=== PATIENT | female | born 1945 | race African-American/Black ===

== ENCOUNTER 2017-01-13 08:05 | Inpatient (IN) | payer MEDICARE ==
[~2017-01-13] VITALS: Ht 154.9 cm; Wt 107.7 kg
[2017-01-13] MEDS ORDERED: CYMB60CA PO (14:49)
[2017-01-13] MEDS ORDERED: CALCTAB19 PO (14:49)
[2017-01-13] MEDS ORDERED: ALEN1TAB48 PO (14:49)
[2017-01-13] MEDS ORDERED: MULTTAB67 PO (14:49)
[2017-01-13] MEDS ORDERED: ASPI1TAB69 PO (14:49)
[2017-01-13] MEDS ORDERED: TRAM50TA PO (14:49)
--- NOTE | 2017-02-17 15:00 | MH ---
cc: Amos UNGER M.D. DATE OF ADMISSION: 02/24/2017 ADMITTING DIAGNOSIS Osteoarthritic degeneration, left knee. HISTORY OF PRESENT ILLNESS This pleasant 71-year-old female is being admitted today for a left total knee arthroplasty due to severe painful osteoarthritic degeneration, left knee. PAST MEDICAL HISTORY 1. Anxiety. 2. Arthritis. 3. Depression. 4. Phlebitis in the past. PAST SURGICAL HISTORY 1. Total hip arthroplasty. 2. Hysterectomy. 3. Toe surgery. 4. Hand surgery. 5. Shoulder surgery. MEDICATIONS Current medications include: 1. Amoxicillin for the dentist. 2. Duloxetine. 3. Tramadol. 4. Alendronate. 5. Calcium. 6. Vitamins. REVIEW OF SYSTEMS Noncontributory. FAMILY HISTORY Noncontributory. She does not smoke or drink. ALLERGIES No known allergies. PHYSICAL EXAMINATION GENERAL: We find a 71-year-old female well-developed, well-nourished, oriented x3, complaining of pain in her left knee. VITAL SIGNS: Blood pressure 138/88, pulse 88 and regular, respirations 18, temperature 97.6, pulse oximetry 97% on room air. HEENT: Eyes PERRLA, EOMI. Ears, nose and mouth clear. NECK: Supple. LUNGS: Clear. HEART: Regular rate. ABDOMEN: Soft. Positive bowel sounds. Nontender. EXTREMITIES: The left knee is tender with crepitance throughout range of motion. She is neurovascularly intact to her toes. IMPRESSION The impression at this time is severe painful osteoarthritic degeneration, left knee. PLAN The plan is for admission for a left total knee arthroplasty today. The patient understands to use Hibiclens scrub and Bactroban preoperatively. She plans on going to rehab after surgery. MD VANESSA Reynolds/TAMMY /2:42 PM /2:52 PM
[2017-02-24] MEDS ORDERED: INSULIN HUMAN REGULAR 1,000 UNITS/10 ML VIAL SQ PRN (06:00)
[2017-02-24] MEDS: CHLORHEXIDINE GLUCONATE 4% SOLN 120 ML BTL TOPICAL SCH (06:00)
[2017-02-24] MEDS ORDERED: LACTATED RINGER'S 1000 ML IV PRN (06:00)
[2017-02-24] MEDS ORDERED: SODIUM CHLORID 0.9% 500 ML IV PRN (06:00)
[2017-02-24] MEDS ORDERED: METOPROLOL TARTRATE 25 MG TAB PO PRN (06:00)
[2017-02-24] MEDS ORDERED: CHLORHEXIDINE GLUCONATE 2 % 1 PACK (2 CLOTHS) TOPICAL PRN (06:00)
[2017-02-24] MEDS ORDERED: ceFAZolin 2 GM PREMIX 50 ML IV SCH (06:00)
[2017-02-24] MEDS ORDERED: VANCOMYCIN 1000 MG/NS 250 ML (for <70 kg) IV SCH ×2 (06:00)
[2017-02-24] MEDS ORDERED: POVIDONE IODINE 5% (ANTISEPSIS KIT) 4 APPLICATIONS EACH NARE PRN (06:00)
[2017-02-24 06:11] VITALS: BP 148/73; PULSE 83; RESP 22; TEMP 97.9; O2SAT 100
[2017-02-24] MEDS ORDERED: MIDAZOLAM HCL 2 MG/2 ML VIAL ONE (06:39)
[2017-02-24] MEDS ORDERED: FAMOTIDINE 20 MG/2 ML VIAL ONE (06:39)
[2017-02-24] MEDS ORDERED: BUPIVACAINE LIPOSO PF 1.3% INJ 20 ML, BUPIVACAINE PF 0.25% INJ 20 ML in SODIUM CHLORIDE... P-ARTICULR SCH (08:00)
[2017-02-24] MEDS ORDERED: TRANEXAMIC ACID INJ 905 MG in SODIUM CHLORIDE 0.9% INJ 100 ML IV SCH ×2 (08:30→11:30)
[2017-02-24] MEDS ORDERED: CPMMACHINE (08:43)
[2017-02-24] MEDS ORDERED: WALKER WHEELS/F1 MIS (08:43)
[2017-02-24] MEDS ORDERED: MISC-163 (08:43)
[2017-02-24] MEDS ORDERED: ACETAMINOPHEN/HYDROcodone 325 MG/7.5 MG TAB PO PRN ×2 (08:45)
[2017-02-24] MEDS ORDERED: MORPHINE SULFATE 30 MG/30 ML PCA IV SCH (08:45)
[2017-02-24] MEDS ORDERED: ALENDRONATE SODIUM 70 MG TAB PO SCH (08:45)
[2017-02-24] MEDS ORDERED: TRANEXAMIC ACID INJ 0 MG in SODIUM CHLORIDE 0.9% INJ 100 ML IV SCH (08:45)
[2017-02-24] MEDS ORDERED: traMADol HCL 50 MG TAB PO PRN (08:45)
[2017-02-24] MEDS ORDERED: diphenhydrAMINE HCL 50 MG/ML VIAL IV PRN (08:45)
[2017-02-24] MEDS ORDERED: ONDANSETRON HCL 4 MG/2 ML VIAL IVP PRN (08:45)
[2017-02-24] MEDS ORDERED: TEMAZEPAM 15 MG CAP PO PRN (08:45)
[2017-02-24] MEDS ORDERED: SODIUM CHLORIDE 0.9% FLUSH 5 ML FLUSH IVF PRN (08:45)
[2017-02-24] MEDS ORDERED: NALOXONE HCL 0.4 MG/ML AMP IV PRN (08:45)
[2017-02-24] MEDS ORDERED: Post-op Orders (for Pharmacy) MISC XX ONE (08:45)
[2017-02-24] MEDS ORDERED: ceFAZolin INJ 1,000 MG VIAL XX ONE (09:19)
[2017-02-24] MEDS ORDERED: PROPOFOL 200 MG/20 ML AMP IV ONE (10:23)
[2017-02-24] MEDS ORDERED: LACTATED RINGER'S 1000 ML INJ 1,000 ML IV ONE (10:23)
[2017-02-24] MEDS ORDERED: NEOSTIGMINE 3 MG/3 ML SYR IV ONE (10:23)
[2017-02-24] MEDS ORDERED: ONDANSETRON HCL 4 MG/2 ML VIAL IV PUSH ONE (10:23)
[2017-02-24] MEDS ORDERED: fentaNYL CITRATE 250 MCG/5 ML AMP ONE (12:05)
[2017-02-24] MEDS ORDERED: MORPHINE SULFATE 4 MG/ML INJ ONE (12:05)
[2017-02-24] MEDS: LACTATED RINGER'S 1000 ML INJ 1,000 ML IV SCH ×2 (12:25→21:09)
[2017-02-24] MEDS ORDERED: *ENALAPRILAT 1.25 MG/ML VIAL PERIprocedural Use ONLY ONE ×2 (12:36→13:03)
[2017-02-24] MEDS ORDERED: *LABETALOL HCL 100 MG/20 ML VIAL PERIprocedural Use ONLY ONE (12:36)
--- NOTE | 2017-02-24 13:01 | RADRPT ---
EXAM DATE/TIME: 02/24/2017 13:17 [place] COMPARISON: No previous studies available for comparison. INDICATIONS : Post op left knee surgery. MEDICAL HISTORY : Unobtainable. SURGICAL HISTORY : Unobtainable. ENCOUNTER: Initial ACUITY: 1 day PAIN SCORE: 0/10 LOCATION: Left knee. FINDINGS: Left total knee arthroplasty is noted. The tibial and femoral components appear well seated. There is subcutaneous emphysema and soft tissue swelling noted. Overlying bandage artifact is present. CONCLUSION: Postop left total knee arthroplasty. George Agee MD on February 24, 2017 at 12:59 Board Certified Radiologist. This report was verified electronically.
[2017-02-24] MEDS ORDERED: DO NOT ADM ANY ANTICOAGULANT DRUGS PRN (13:15)
[2017-02-24] MEDS ORDERED: LABETALOL HCL 100 MG/20 ML VIAL IV ONE (14:00)
[2017-02-24] MEDS: PCA - TOTAL MG MORPHINE DELIVERED PER SHIFT SCH ×2 (14:58→22:00)
[2017-02-24 16:12] VITALS: BP 140/68; PULSE 91; RESP 17; TEMP 97.5; O2SAT 94
[2017-02-24 20:06] VITALS: BP 158/70; PULSE 80; RESP 16; TEMP 97.4; O2SAT 98
[2017-02-24] MEDS: CALCIUM/VITAMIN D 250 MG/125 U TAB PO SCH (21:24)
[2017-02-24] MEDS: SODIUM CHLORIDE 0.9% FLUSH 5 ML FLUSH IVF SCH (21:24)
[2017-02-25] VITALS: BP 132/64; PULSE 91; RESP 16; TEMP 99.6; O2SAT 96
[2017-02-25 04:30] VITALS: BP 131/61; PULSE 84; RESP 17; TEMP 100; O2SAT 99
[2017-02-25] MEDS: PCA - TOTAL MG MORPHINE DELIVERED PER SHIFT SCH (06:00)
[2017-02-25] MEDS: CHLORHEXIDINE GLUCONATE 4% SOLN 120 ML BTL TOPICAL SCH (06:00)
[2017-02-25 07:17] LABS: REVIEW FLAG FINAL
[2017-02-25 08:26] VITALS: BP 115/62; PULSE 78; RESP 16; TEMP 98.4; O2SAT 98
[2017-02-25] MEDS: ASPIRIN EC 81 MG TABEC PO SCH ×2 (08:46→09:00)
[2017-02-25] MEDS: DULoxetine HCl DR 60 MG CAP PO SCH ×2 (08:46→09:00)
[2017-02-25] MEDS: CALCIUM/VITAMIN D 250 MG/125 U TAB PO SCH ×2 (08:46→21:57)
[2017-02-25] MEDS: MULTIVITAMIN TAB PO SCH ×2 (08:46→09:00)
[2017-02-25] MEDS: ENOXAPARIN SODIUM 30 MG/0.3 ML SYRINGE SQ SCH ×2 (08:47→21:59)
--- NOTE | 2017-02-25 08:58 | MP ---
cc: Amos UNGER DATE OF SURGERY 02/24/2017 PREOPERATIVE DIAGNOSIS Osteoarthritic degeneration left knee. POSTOPERATIVE DIAGNOSIS Osteoarthritic degeneration left knee. PROCEDURE Left total knee arthroplasty using consensus knee system with the B spoke cutting guide protocol, sizes were tibia was a 2, femur was a 5, patella 2 with 7.5 mm thickness and 10 mm insert with two batches of cobalt blue cement SURGEON Dr. Eleno Unger ETHOLOGIST ADALBERTO Cortes ANESTHESIA General intubation and 120 mL of Exparel PROCEDURE IN DETAIL The patient was brought to the operating room and placed on the operating room table in the supine position. After successful induction of general anesthesia, the patient's left leg was prepped and draped in the usual manner. The knee was then placed in a knee villalobos and tightened. Arthroscopic examination was then performed by making a stab wound over the proximal superior and medial aspect of the patellofemoral joint for insertion of the inflow cannula and fluid, followed by stab wounds over the medial and lateral joint margins respectively for insertion of the arthroscope, shaver and probe. The components utilized were the aforementioned components using the B spoke protocol cutting jigs. The tourniquet was only used for cementing. Total tourniquet time being 9 minutes at 300 mmHg pressure. Meticulous hemostasis achieved with output of 5 mL Aleja and 120 mL of Exparel used around the knee joint. The deep fascia approximated with running #2 quill, subcutaneous tissue approximated using interrupted running 2-0 and 3-0 Monocryl sutures. Steri-Strips, sterile dressing and knee immobilizer. Estimated blood loss 175 mL. Sponge and suture count correct. The patient tolerated the procedure well and left the operating in satisfactory condition. No drain utilized. MD VANESSA Reynolds/ /11:11 AM /8:55 AM
[2017-02-25] MEDS: SODIUM CHLORIDE 0.9% FLUSH 5 ML FLUSH IVF SCH ×2 (09:00→21:00)
[2017-02-25] MEDS: LACTATED RINGER'S 1000 ML INJ 1,000 ML IV SCH ×2 (09:39→22:09)
--- NOTE | 2017-02-25 11:01 | PD.ORT.PN ---
Subjective Subjective Remarks pt comfortable, no complaints. Objective Vitals Vital Signs Date Time Temp Pulse Resp B/P Pulse Ox O2 Delivery O2 Flow Rate FiO2 02/25/17 08:26 98.4 78 16 115/62 98 02/25/17 06:00 16 02/25/17 04:30 100.0 84 17 131/61 99 02/25/17 00:00 99.6 91 16 132/64 96 02/24/17 22:00 15 02/24/17 20:06 97.4 80 16 158/70 98 02/24/17 16:12 97.5 91 17 140/68 94 02/24/17 14:58 18 02/24/17 13:40 97.6 63 16 138/77 100 Nasal Cannula 2 02/24/17 13:30 61 16 149/80 99 Nasal Cannula 2 02/24/17 13:20 62 15 162/85 98 Nasal Cannula 2 02/24/17 13:10 64 15 171/89 98 Nasal Cannula 2 02/24/17 13:00 60 15 180/92 97 Nasal Cannula 2 02/24/17 12:45 62 14 172/98 97 Nasal Cannula 2 02/24/17 12:30 68 14 181/93 96 Nasal Cannula 2 02/24/17 12:24 14 02/24/17 12:15 70 14 178/90 99 Nasal Cannula 3 02/24/17 12:00 81 13 175/89 98 Nasal Cannula 3 I/O 02/24/17 02/24/17 02/24/17 02/25/17 02/25/17 02/25/17 07:00 15:00 23:00 07:00 15:00 23:00 Intake Total 1700 ml 1333 ml 1256 ml Output Total 475 ml 300 ml Balance 1225 ml 1033 ml 1256 ml Intake Oral 480 ml 480 ml IV Total 100 ml 853 ml 776 ml Other 1600 ml Output Urine Total 300 ml 300 ml Estimated Blood Loss 175 ml # Voids 4 4 # Bowel Movements 0 0 Result Diagram: 02/25/17 0644 Objective Remarks Dressing dry and intact. Sitting up in chair. NV intact to toes. No calf tenderness. Assessment & Plan Ortho Post Op Day #: 1 Problem List: Assessment and Plan Daily wound care, OOB, PT, DC [employer]ING [employer] P[employer]HER today.Plan SNF Thursday. Amos Augustin MD Feb 25, 2017 11:01
[2017-02-25] MEDS: ACETAMINOPHEN 325 MG TAB PO PRN ×2 (11:30→17:15)
[2017-02-25 11:35] VITALS: BP 132/77; PULSE 85; RESP 18; TEMP 97.3; O2SAT 100
[2017-02-25 15:27] VITALS: BP 128/67; PULSE 88; RESP 18; TEMP 95.5; O2SAT 98
[2017-02-25 19:41] VITALS: BP 128/73; PULSE 71; RESP 20; TEMP 97.8; O2SAT 95
[2017-02-25] MEDS: MULTIVITAMINS/MINERALS THERAPEUTIC TAB PO SCH (21:57)
[2017-02-25] MEDS: DOCUSATE SODIUM 100 MG CAP PO SCH (21:58)
[2017-02-26 00:44] VITALS: BP 140/78; PULSE 93; RESP 20; TEMP 99.6; O2SAT 99
[2017-02-26 05:50] LABS: HEMATOCRIT 33.6 % (35.0-46.0); REVIEW FLAG FINAL
[2017-02-26] MEDS: CHLORHEXIDINE GLUCONATE 4% SOLN 120 ML BTL TOPICAL SCH (06:00)
[2017-02-26] MEDS: ACETAMINOPHEN 325 MG TAB PO PRN ×3 (06:57→18:10)
[2017-02-26 08:00] VITALS: BP 126/73; PULSE 110; RESP 18; TEMP 96.3; O2SAT 97
[2017-02-26] MEDS: MULTIVITAMINS/MINERALS THERAPEUTIC TAB PO SCH ×2 (08:05→20:32)
[2017-02-26] MEDS: MULTIVITAMIN TAB PO SCH (08:05)
[2017-02-26] MEDS: DOCUSATE SODIUM 100 MG CAP PO SCH ×2 (08:06→20:32)
[2017-02-26] MEDS: ASPIRIN EC 81 MG TABEC PO SCH (08:06)
[2017-02-26] MEDS: CALCIUM/VITAMIN D 250 MG/125 U TAB PO SCH ×2 (08:06→20:32)
[2017-02-26] MEDS: DULoxetine HCl DR 60 MG CAP PO SCH (09:00)
[2017-02-26] MEDS: SODIUM CHLORIDE 0.9% FLUSH 5 ML FLUSH IVF SCH ×2 (09:00→20:33)
[2017-02-26] MEDS ORDERED: BACITRACIN OINT 0.9 GM PKT TOP PRN (10:15)
[2017-02-26] MEDS: LACTATED RINGER'S 1000 ML INJ 1,000 ML IV SCH ×2 (10:39→20:29)
--- NOTE | 2017-02-26 11:10 | PD.ORT.PN ---
Subjective Subjective Remarks pt comfortable, no complaints. Objective Vitals Vital Signs Date Time Temp Pulse Resp B/P Pulse Ox O2 Delivery O2 Flow Rate FiO2 02/26/17 08:00 96.3 110 18 126/73 97 02/26/17 00:44 99.6 93 20 140/78 99 02/25/17 19:41 97.8 71 20 128/73 95 02/25/17 18:41 21 02/25/17 15:27 95.5 88 18 128/67 98 02/25/17 11:35 97.3 85 18 132/77 100 I/O 02/25/17 02/25/17 02/25/17 02/26/17 02/26/17 02/26/17 07:00 15:00 23:00 07:00 15:00 23:00 Intake Total 1256 ml 600 ml 600 ml 650 ml Balance 1256 ml 600 ml 600 ml 650 ml Intake Oral 480 ml 600 ml 600 ml 650 ml IV Total 776 ml # Voids 4 2 3 2 # Bowel Movements 0 0 1 0 Result Diagram: 02/26/17 0529 Objective Remarks Dressing dry and intact. Sitting up in chair. NV intact to toes. No calf tenderness. Assessment & Plan Ortho Post Op Day #: 2 Problem List: Assessment and Plan Daily wound care, OOB, PT, Plan SNF Thursday. Amos Augustin MD Feb 26, 2017 11:10
[2017-02-26] MEDS: ENOXAPARIN SODIUM 30 MG/0.3 ML SYRINGE SQ SCH ×2 (11:41→20:32)
[2017-02-26 11:51] VITALS: BP 144/93; PULSE 90; RESP 18; TEMP 96.7; O2SAT 98
[2017-02-26 16:00] VITALS: BP 136/84; PULSE 112; RESP 18; TEMP 98; O2SAT 98
[2017-02-26] MEDS ORDERED: BISACODYL 10 MG SUPP RECTAL PRN (18:30)
[2017-02-26] MEDS ORDERED: MAGNESIUM HYDROXIDE SUSP 30 ML CUP PO PRN (18:30)
[2017-02-26 20:00] VITALS: BP 134/79; PULSE 105; RESP 16; TEMP 96.3; O2SAT 94
[2017-02-26 23:59] VITALS: BP 138/60; PULSE 99; RESP 17; TEMP 99.3; O2SAT 98
[2017-02-27] MEDS: ACETAMINOPHEN 325 MG TAB PO PRN ×2 (05:12→11:52)
[2017-02-27 08:00] VITALS: BP 139/64; PULSE 101; RESP 18; TEMP 98.9; O2SAT 99
[2017-02-27] MEDS ORDERED: HYDR-3580 PO (08:13)
--- NOTE | 2017-02-27 08:13 | PD.ORT.PN ---
Subjective Subjective Remarks pt comfortable, no complaints. Objective Vitals Vital Signs Date Time Temp Pulse Resp B/P Pulse Ox O2 Delivery O2 Flow Rate FiO2 02/26/17 23:59 99.3 99 17 138/60 98 02/26/17 20:00 96.3 105 16 134/79 94 02/26/17 16:00 98.0 112 18 136/84 98 02/26/17 11:51 96.7 90 18 144/93 98 I/O 02/26/17 02/26/17 02/26/17 02/27/17 02/27/17 02/27/17 07:00 15:00 23:00 07:00 15:00 23:00 Intake Total 650 ml 1080 ml 480 ml Balance 650 ml 1080 ml 480 ml Intake Oral 650 ml 1080 ml 480 ml # Voids 2 6 2 # Bowel Movements 0 1 0 Result Diagram: 02/26/17 0529 Objective Remarks Dressing dry and intact. Sitting up in chair. NV intact to toes. No calf tenderness.Ambulating well with walker. Assessment & Plan Ortho Post Op Day #: 3 Problem List: Assessment and Plan Daily wound care, OOB, PT, Plan SNF today. Amos Augustin MD Feb 27, 2017 08:13
[2017-02-27] MEDS: CALCIUM/VITAMIN D 250 MG/125 U TAB PO SCH (08:21)
[2017-02-27] MEDS: DOCUSATE SODIUM 100 MG CAP PO SCH (08:21)
[2017-02-27] MEDS: ASPIRIN EC 81 MG TABEC PO SCH (08:21)
--- NOTE | 2017-02-27 08:21 | HHI.DS ---
Discharge Summary Admission Date Feb 24, 2017 at 05:25 Discharge Date: Feb 27, 2017 Admitting Diagnosis Osteoarthritic degeneration left knee Diagnosis: (1) Status post left knee replacement Diagnosis: Principal Brief History This is a 72 year old female patient CBC/BMP: 02/26/17 0529 Significant Findings Laboratory Tests Test 02/26/17 05:29 Hematocrit 33.6 % (35.0-46.0) PE at Discharge Dressing dry and intact. Sitting up in chair. NV intact to toes. No calf tenderness.Ambulating well with walker. Hospital Course Patient underwent a left total knee arthroplasty on day of admission. She received a course of prophylactic IV antibiotics and began out of bed tolerating food and fluids well. Within 23 hours of surgery she started on anticoagulation therapy as well. She continued to improve and by postop day 3 she was independently getting out of bed and using a walker by herself. She remained neurovascularly intact and afebrile after the first postoperative day. She was discharged to care home facility on postoperative day #3 on by mouth pain meds and instructions for continuation of anticoagulation care. She was discharged in good condition with instructions to follow up in the office 10 days time for recheck. Pt Condition on Discharge: Good Discharge Disposition: Discharge to SNF Discharge Instructions Diet Instructions: As Tolerated, No Restrictions Activities You Can Perform: Weight Bearing as Eddi, Shower Only-No Bath Activities to Avoid: Bathing, Driving Amos Augustin MD Feb 27, 2017 08:21
[2017-02-27] MEDS: SODIUM CHLORIDE 0.9% FLUSH 5 ML FLUSH IVF SCH (08:25)
[2017-02-27] MEDS: MULTIVITAMINS/MINERALS THERAPEUTIC TAB PO SCH (09:00)
[2017-02-27] MEDS: DULoxetine HCl DR 60 MG CAP PO SCH (09:00)
[2017-02-27] MEDS: ENOXAPARIN SODIUM 30 MG/0.3 ML SYRINGE SQ SCH (10:49)
[2017-02-27] MEDS: LACTATED RINGER'S 1000 ML INJ 1,000 ML IV SCH (11:39)
[2017-02-27] MEDS ORDERED: DULoxetine HCl DR 60 MG CAP PO SCH (21:00)
== END 2017-02-27 12:21 | DRG 470 ==
LOC: HSDI 02-24 05:25 → N06B 02-24 14:27
PROVIDERS: ADMIT Surgery; ATTEND Surgery
PROC: 3E0T3CZ (ICD-10-PCS; 2017-02-24)
PROC: 3E0T3CZ (ICD-10-PCS; 2017-02-24)
PROC: 0SRD0J9 Replacement of Left Knee Joint with Synthetic Substitute, Cemented, Open Approach (ICD-10-PCS; principal; 2017-02-24 08:25)
DX: M17.12 Unilateral primary osteoarthritis, left knee (principal); F32.9 Major depressive disorder, single episode, unspecified; F41.9 Anxiety disorder, unspecified; Z86.72 Personal history of thrombophlebitis; Z96.649 Presence of unspecified artificial hip joint
CPT/HCPCS: 73560; 85014; 85018; 86850; 86900; 86901; C1776; C9290; J0690; J1650; J2250; J2270; J2405; J2710; J3010; J3370; J7050; J7120; L1830

== ENCOUNTER → 2017-01-13 | Outpatient (CLI) | payer MEDICARE ==
[~2017-01-13] MED LIST: ALEN1TAB48 PO; ASPI1TAB69 PO; ASPI81CH3; CALC600T34 PO; CALCTAB19 PO; CPMMACHINE; CYMB60CA PO; DULO20 PO; HYDR-3580 PO; MISC-163; MULTTAB67 PO; TAB-TAB PO; TRAM50TA PO; ULTR50TA PO; WALKER WHEELS/F1 MIS
[2017-01-13 08:25] LABS: AUTOMATED NEUTROPHIL # 3.3 TH/MM3 (1.8-7.7); BASOPHIL % 0.5 % (0.0-2.0); EOSINOPHIL # 0.2 TH/MM3 (0-0.4); HEMATOCRIT 40.9 % (35.0-46.0); HEMO FLAGS DIFF FINAL; LYMPH % 34.9 % (9.0-44.0); LYMPHOCYTE # 2.2 TH/MM3 (1.0-4.8); MEAN CORPUSCULAR HEMOGLOBIN 29.3 PG (27.0-34.0); MEAN CORPUSCULAR HGB CONC 33.7 % (32.0-36.0); MONO % 9.1 % (0.0-8.0); NEUT % 52.5 % (16.0-70.0); PLATELET COUNT 365 TH/MM3 (150-450); RED BLOOD COUNT 4.69 MIL/MM3 (4.00-5.30); RED CELL DISTRIBUTION WIDTH 14.2 % (11.6-17.2); WHITE BLOOD COUNT 6.3 TH/MM3 (4.0-11.0)
[2017-01-13 08:36] LABS: APTT (PATIENT) 26.8 SEC (24.3-30.1); PROTHROMBIN TIME - PATIENT 10.8 SEC (9.8-11.6)
[2017-01-13 09:00] LABS: ALKALINE PHOSPHATASE 68 U/L (45-117); ALT (GPT) 31 U/L (10-53); ANION GAP 4 MEQ/L (5-15); AST (GOT) 19 U/L (15-37); BICARBONATE 31.8 MEQ/L (21.0-32.0); BLOOD UREA NITROGEN 13 MG/DL (7-18); CHLORIDE 104 MEQ/L (98-107); GLOMERULAR FILTRATION RATE 73 ML/MIN (>89); GLUCOSE,FASTING 98 MG/DL (74-99); POTASSIUM 4.5 MEQ/L (3.5-5.1); SODIUM (NA) 140 MEQ/L (136-145); TOTAL BILIRUBIN ADULT 0.6 MG/DL (0.2-1.0)
[2017-01-13 10:24] LABS: BLOOD, URINE NEG (NEG); COMMENT (UR) CULT NOT INDICATED; CULTURE IF INDICATED CULT NOT INDICATED; GLUCOSE,URINE NEG (NEG); KETONE, URINE NEG (NEG); NITRITE,URINE NEG (NEG); PH, URINE 6.5 (5.0-8.5); SQUAMOUS EPITHELIAL CELL URINE 1 /hpf (0-5); URINE COLOR YELLOW (YELLW/STRAW)
== END ==
LOC: CPRE 08:01
PROVIDERS: ATTEND Surgery
DX: Z01.810 Encounter for preprocedural cardiovascular examination (principal); Z01.812 Encounter for preprocedural laboratory examination
CPT/HCPCS: 36415; 80053; 81001; 85025; 85610; 85730

== ENCOUNTER → 2017-02-10 | Outpatient (CLI) | payer MEDICARE ==
[~2017-02-10] MED LIST changes: -ASPI81CH3; -CALC600T34 PO; -DULO20 PO; -TAB-TAB PO; -ULTR50TA PO
[2017-02-10 09:16] LABS: BLOOD, URINE NEG (NEG); COMMENT (UR) CATH-CULT NOT IND; CULTURE IF INDICATED CATH CULTURE NOT IND; GLUCOSE,URINE NEG (NEG); KETONE, URINE NEG (NEG); NITRITE,URINE NEG (NEG); SQUAMOUS EPITHELIAL CELL URINE <1 /hpf (0-5); URINE COLOR YELLOW (YELLW/STRAW)
[2017-02-10 09:18] LABS: AUTOMATED NEUTROPHIL # 2.2 TH/MM3 (1.8-7.7); BASOPHIL % 0.6 % (0.0-2.0); EOSINOPHIL # 0.2 TH/MM3 (0-0.4); EOSINOPHIL % 3.8 % (0.0-4.0); HEMATOCRIT 40.5 % (35.0-46.0); HEMO FLAGS DIFF FINAL; LYMPH % 45.3 % (9.0-44.0); LYMPHOCYTE # 2.5 TH/MM3 (1.0-4.8); MEAN CELL VOLUME 86.3 FL (80.0-100.0); MEAN CORPUSCULAR HEMOGLOBIN 29.1 PG (27.0-34.0); MEAN CORPUSCULAR HGB CONC 33.7 % (32.0-36.0); MONO % 10.2 % (0.0-8.0); NEUT % 40.1 % (16.0-70.0); PLATELET COUNT 349 TH/MM3 (150-450); RED BLOOD COUNT 4.69 MIL/MM3 (4.00-5.30); RED CELL DISTRIBUTION WIDTH 13.9 % (11.6-17.2); WHITE BLOOD COUNT 5.5 TH/MM3 (4.0-11.0)
[2017-02-10 09:24] LABS: APTT (PATIENT) 29.4 SEC (24.3-30.1); PROTHROMBIN TIME - PATIENT 10.9 SEC (9.8-11.6)
[2017-02-10 09:46] LABS: ALKALINE PHOSPHATASE 66 U/L (45-117); ALT (GPT) 24 U/L (10-53); ANION GAP 7 MEQ/L (5-15); AST (GOT) 15 U/L (15-37); BICARBONATE 30.6 MEQ/L (21.0-32.0); BLOOD UREA NITROGEN 13 MG/DL (7-18); CHLORIDE 103 MEQ/L (98-107); GLOMERULAR FILTRATION RATE 86 ML/MIN (>89); GLUCOSE,FASTING 88 MG/DL (74-99); POTASSIUM 4.2 MEQ/L (3.5-5.1); SODIUM (NA) 141 MEQ/L (136-145); TOTAL BILIRUBIN ADULT 0.6 MG/DL (0.2-1.0)
--- NOTE | 2017-02-10 22:08 | EKG ---
Date Performed: 02/10/2017 Time Performed: 08:30:55 PTAGE: 71 years EKG: Sinus rhythm LOW QRS VOLTAGE IN PRECORDIAL LEADS POSSIBLE ANTERIOR MYOCARDIAL INFARCTION, PROBABLY OLD Since prev ious tracing, no significant change noted BORDERLINE ECG PREVIOUS TRACING : 12/05/11 09.41.06 DOCTOR: Nadine Armando Interpretating Date/Time 02/10/2017 22:06:07
== END ==
LOC: CPRE 07:52
PROVIDERS: ATTEND Surgery
DX: Z01.810 Encounter for preprocedural cardiovascular examination (principal); Z01.812 Encounter for preprocedural laboratory examination
CPT/HCPCS: 36415; 80053; 81001; 85025; 85610; 85730; 93005

== ENCOUNTER 2018-06-29 08:30 | Inpatient (IN) ==
[2018-08-03] MEDS ORDERED: Propofol Inj 500 MG/50 ML Vial ONE ×2 (06:47→13:43)
[2018-08-03] MEDS ORDERED: HYDROmorphone PF Inj 2 MG/ML Vial ONE (06:47)
[2018-08-03] MEDS ORDERED: Hypromellose 0.3% Opth Gel 10 GM Bottle ONE (06:47)
[2018-08-03] MEDS ORDERED: Chlorhexidine Gluconate 2% 1 Pack (2 Cloths) TOPICAL ONE (06:58)
[2018-08-03] MEDS ORDERED: Metoprolol Tartrate 25 MG Tablet PO ONE (06:58)
[2018-08-03] MEDS ORDERED: Sod Chloride 0.9% Inj 1,000 ML IV.SIG SCH (07:00)
[2018-08-03] MEDS ORDERED: Sodium Chlor 0.9% Inj 500 ML IV.SIG SCH (07:00)
[2018-08-03 07:24] LABS: Bilirubin,Urine Negative (Negative); Clarity,Urine Clear (Clear); Color,Urine Yellow (Yellw/Straw); Glucose,Urine (UA) Negative (Negative); Leukocyte Esterase,Urine Trace (Negative); Nitrite,Urine Negative (Negative); Urobilinogen,Urine 0.2 mg/dL (Less than 2)
[2018-08-03 07:28] LABS: Specific Gravity,Urine 1.016 (1.002-1.035)
[2018-08-03] MEDS: Vancomycin Inj 1,000 MG in Sodium Chlor 0.9% Inj 250 ML IV.SIG SCH ×2 (07:28→12:34)
[2018-08-03 07:29] LABS: RBC,Urine 0-3 /hpf (0-3); Squamous Epithelial Cell,Urine 0-5 /hpf (0-5); WBC,Urine 0-5 /hpf (0-5)
[2018-08-03 07:47] LABS: Activated Partial Thrombo Time 27.2 sec (24.3-30.1)
[2018-08-03] MEDS ORDERED: Heparin - SQ 10,000 UNITS/ML Vial ONE (07:55)
[2018-08-03] MEDS ORDERED: Bupivacaine/Epinephrine 0.5% Inj 50 ML Vial ONE (07:55)
[2018-08-03] MEDS ORDERED: Thrombin Topical Soln 5,000 UNIT Vial TOPICAL ONE (07:55)
[2018-08-03] MEDS ORDERED: Gelatin Size 100 Topical Foam ONE (07:56)
[2018-08-03 08:01] LABS: Prothrombin Time 10.4 sec (9.8-11.6)
[2018-08-03] MEDS ORDERED: Phenylephrine/NS 1000 MCG/10ML Syringe IV.PUSH ONE (08:15)
[2018-08-03] MEDS ORDERED: ceFAZolin 2 GM Premix Inj 2 GM/50 ML PIGGYBACK IV.SIG ONE (08:25)
[2018-08-03] MEDS ORDERED: Naloxone Inj 0.4 MG/ML Vial IV.PUSH PRN ×2 (14:33→14:39)
[2018-08-03] MEDS ORDERED: Bisacodyl 10 MG Supp RECTAL PRN (14:33)
[2018-08-03 14:38] LABS: ABG Base Excess -1.4 mmol/L (-2-2); ABG PCO2 33 mmHg (38-42); ABG PO2 236 mmHG (61-120)
--- NOTE | 2018-08-03 15:35 | P.CONIM ---
History of Present Illness Reason for Consult: Postoperative medical management Primary Care Provider: Bro Rico MD Family Provider: Dr. Rico History of Present Illness: This is a 73-year-old male patient with past medical history which includes hyperlipidemia (not on medication), osteoarthritis, diverticulosis, anxiety, osteoporosis and lumbar spinal stenosis/chronic lumbar sacral pain. Patient underwent surgical intervention L3-4, L4-5 hemilaminectomy 08/03/[address] Alonso (full op report is pending)we have been consulted for assistance with postoperative medical management. Patient seen in PACU post-operatively. Patient is drowsy post-anesthesia in formation gathered from patient as well as prior charting. Patient offers no complaints at this time. Patient is able to wiggle bilateral toes and has intact sensation. Patient denies SOB, chest pain , N/V/D/C, fevers or shills. PMH: hyperlipidemia, osteoarthritis, diverticulosis, anxiety, osteoporosis and lumbar spinal stenosis/chronic lumbar sacral pain. PSxH: Arthroplasty for hammertoe, back surgery, complete colonoscopy, hand surgery, hip right hip surgery, hysterectomy, tonsillectomy and adenoidectomy, hip replacement, left knee replacement, tubal ligation Social history: Denies EtOH use or tobacco use FMH: Hypertension Review of Systems All other systems reviewed negative except as stated in HPI [facility] - History History Provided By: Patient - Medical History Medical History: Medical History (Last Reviewed 08/03/18 @ 07:15 by Iram Hall RN) Anxiety Cataracts, bilateral Chronic osteoarthritis Depression Diverticulosis H/O sigmoidoscopy History of hysterectomy Hyperlipidemia Lumbar spinal stenosis Obesity Osteoporosis Post-phlebitic syndrome Right lumbar radiculopathy Thrombocytosis Uterine leiomyoma - Surgical History Surgical History: Surgical History (Last Updated 08/03/18 @ 07:17 by Iram Hall RN) History of right hip replacement H/O colonoscopy H/O hand surgery H/O tubal ligation History of back surgery History of hammertoe correction History of phacoemulsification of cataract of left eye with intraocular lens implantation History of tonsillectomy and adenoidectomy History of total left knee replacement - Tobacco History Second Hand Smoke Exposure: No Smoking Status: Never smoker - Alcohol History How Often Do You Have a Drink Containing Alcohol: Never - Substance Use History Substance History: No History of Abuse - Travel History Recent Travel in the [place] Within the Last 8 Weeks: No Recent Travel Out of the Country Within the Last 8 Weeks: No Medications and Allergies Active Medications: Active Medications Hydrocodone Bitart/Acetaminophen (Orient 10/325) 1 tab PO Q4H PRN PRN Reason: Pain Scale 1 To 5 Al Hydroxide/Mg Hydroxide (Milk Of Magnesia Liq) 30 ml PO Q12H PRN PRN Reason: Mild Constipation Albuterol (Albuterol Neb (Prn)) 2.5 mg NEB Q4HR NEB PRN PRN Reason: WHEEZING Bisacodyl (Dulcolax Supp) 10 mg RECTAL DAILY PRN PRN Reason: SEVERE CONSITIPATION Clonidine HCl (Catapres) 0.1 mg PO Q6H PRN PRN Reason: SYS BP GREATER THAN 170 MMHG Diphenhydramine HCl (Benadryl) 25 mg PO Q6H PRN PRN Reason: for itching Vancomycin HCl 1,000 mg/ (Sodium Chloride) 250 mls @ 250 mls/hr IV.SIG OPERATIONS MANAGER/COORDINATOR [facility] Stop: 08/06/18 06:59 Last Admin: 08/03/18 12:34 Dose: 250 mls/hr Sodium Chloride (Ns Inj) 1,000 mls @ 30 mls/hr IV.SIG .Q24H [facility] Lactated Ringer's (Lr 1000 Ml Inj) 1,000 mls @ 30 mls/hr IV.SIG .Q24H [facility] Stop: 08/04/18 06:59 Last Admin: 08/03/18 07:27 Dose: 30 mls/hr Sodium Chloride (Ns Inj) 500 mls @ 30 mls/hr IV.SIG .Q10H [facility] Last Admin: 08/03/18 07:29 Dose: Not Given Cefazolin Sodium/Dextrose (Ancef 2 Gm Premix Inj) 2 gm in 50 mls @ 100 mls/hr IV.SIG Q8H [facility] Stop: 08/04/18 07:29 Hydromorphone/Sodium Chloride (Dilaudid Exploration Manager Inj) 6 mg in 30 mls @ 0 mls/hr QUALITY CONTROL OPERATOR UNSCH PRN PRN Reason: per QUALITY CONTROL OPERATOR parameters Lactulose (Lactulose Liq) 30 ml PO DAILY PRN PRN Reason: SEVERE CONSITIPATION Miscellaneous (Pill Splitter) 1 each OTHER UNSCH PRN PRN Reason: SEE LABEL COMMENTS Multivitamins (Theragran) 1 tab PO DAILY [facility] Naloxone HCl (Narcan Inj) 0.4 mg IV.PUSH UNSCH PRN PRN Reason: SEE LABEL COMMENTS Naloxone HCl (Narcan Inj) 0.4 mg IV.PUSH UNSCH PRN PRN Reason: SEE LABEL COMMENTS Ondansetron HCl (Zofran Inj) 4 mg IV.PUSH Q6H PRN PRN Reason: NAUSEA OR VOMITING Pantoprazole Sodium (Protonix) 40 mg PO DAILY [facility] Senna/Docusate Sodium (Kristy-Colace) 1 tab PO BID [facility] Sennosides (Senokot) 17.2 mg PO Q12H PRN PRN Reason: Moderate Constipation Vitamin D (Vitamin D3) 200 unit PO BID [facility] Allergies Allergy/AdvReac Type Severity Reaction Status Date / Time No Known Allergies Allergy Verified 08/03/18 07:18 Home Medications Medication Instructions Recorded Confirmed Type alendronate 70 mg PO QWEEK 05/12/18 08/03/18 History aspirin 81 mg PO DAILY 05/12/18 08/03/18 History calcium carbonate-vitamin D3 1 tab PO BID 05/12/18 08/03/18 History [Calcium 600 + D(3)] multivitamin [Daily Multi-Vitamin] 1 tab PO DAILY 05/12/18 08/03/18 History acetaminophen [Acetaminophen Extra 500 mg PO DAILY PRN 05/26/18 08/03/18 History Strength] Exam Vital signs: Vital Signs 08/03/18 07:19 Temperature 98.0 F Pulse Rate 78 Respiratory Rate 16 Blood Pressure 118/74 Pulse Oximetry 99 Intake & Output 08/02/18 08/03/18 08/03/18 18:59 06:59 18:59 Intake Total 250 / 250 Balance 250 / 250 Weight 90 kg 90 kg Intake: IV 250 / 250 Vancomycin Inj 1,000 MG In NS 250 / 250 Inj 250 ML @ 250 mls/hr IV.SIG OPERATIONS MANAGER/COORDINATOR [facility] Rx#:[id number] Other: Weight On Admission 90 kg Narrative: GENERAL: This is a well-nourished, well-developed patient, drowsy postanesthesia CARDIOVASCULAR: Regular rate and rhythm RESPIRATORY: Clear to auscultation. Breath sounds equal bilaterally. No wheezes , rales, or rhonchi. GASTROINTESTINAL: Abdomen soft, non-tender, nondistended. Normal active bowel sounds MUSCULOSKELETAL: Extremities without clubbing, cyanosis, or edema. NEURO: Drowsy postanesthesia. intact sensation able to wiggles bilateral toes. Results - Labs Labs: Laboratory Results - last 24 hr 08/03/18 08/03/18 08/03/18 07:00 07:20 11:05 PT 10.4 INR 1.0 APTT 27.2 Puncture Site Patient Temperature O2 Saturation ABG pH ABG pCO2 ABG pO2 ABG HCO3 ABG O2 Content ABG Base Excess ABG Methemoglobin Irwin Test Hemoglobin Carboxyhemoglobin O2 Delivery Device Vent Setting Inspired O2 Critical Value Urine Color Yellow Urine Clarity Clear Urine pH 5.0 Ur Specific Casey 1.016 Urine Protein Negative Urine Glucose (UA) Negative Urine Ketones Negative Urine Occult Blood Trace Urine Nitrate Negative Urine Bilirubin Negative Urine Urobilinogen 0.2 Ur Leukocyte Esterase Trace H Urine RBC 0-3 Urine WBC 0-5 Ur Squamous Epith Cells 0-5 Micro UA Comment Culture not ind Ur Microscopic Review Not Reportable Urine Culture Comments Culture not ind Blood Type B Positive Antibody Screen Negative MTS Gel Crossmatch See Detail 08/03/18 14:20 PT INR APTT Puncture Site Drawn in or Patient Temperature 98.6 O2 Saturation 97 ABG pH 7.44 H ABG pCO2 33 L ABG pO2 236 H ABG HCO3 22 ABG O2 Content 18.0 ABG Base Excess -1.4 ABG Methemoglobin 1.7 Irwin Test Present Hemoglobin 12.8 Carboxyhemoglobin 0.9 O2 Delivery Device Ventilator Vent Setting Or Inspired O2 50 Critical Value No Urine Color Urine Clarity Urine pH Ur Specific Casey Urine Protein Urine Glucose (UA) Urine Ketones Urine Occult Blood Urine Nitrate Urine Bilirubin Urine Urobilinogen Ur Leukocyte Esterase Urine RBC Urine WBC Ur Squamous Epith Cells Micro UA Comment Ur Microscopic Review Urine Culture Comments Blood Type Antibody Screen MTS Gel Crossmatch Assessment and Plan - Assessment (1) Lumbar stenosis Code(s): M48.061 - Spinal stenosis, lumbar region without neurogenic claudication Status: Acute Plan: This is a 73-year-old male patient with past medical history which includes hyperlipidemia, osteoarthritis, diverticulosis, anxiety, osteoporosis and lumbar spinal stenosis/chronic lumbar sacral pain. Patient underwent surgical intervention L3-4, L4-5 hemilaminectomy 08/03/[address] Alonso 08/03/[address] Alonso (full operative report pending). We have been consulted for assistance with postoperative medical management. lumbar spinal stenosis/chronic lumbar sacral pain L3-4, L4-5 hemilaminectomy 08/03/[address] Alonso 08/03/[address] Alonso ( full operative report pending Post operative management per neurosurgery osteoporosis alendronate and calcium continued per Neurosurgery DVT prophylaxis with SCDs Patient's vital signs are stable and patient not in acute distress will be available as needed
--- NOTE | 2018-08-03 17:21 | XR ---
EXAM DATE: 08/03/2018 5:16 PM EDT AGE/SEX: 73 years / Female INDICATIONS: Fusion L3,L4 and L4,L5 with screws and rods placement. CLINICAL DATA: This is the patient's initial encounter. Patient reports that signs and symptoms have been present for 1 day and indicates a pain score of Nonresponsive. MEDICAL/SURGICAL HISTORY: None. None. COMPARISON: No prior exams available for comparison. FINDINGS: 2 intraoperative films submitted for interpretation. Patient's had posterior fusion from L3 to L5 wit h bilateral ventricular screws. Hardware is in excellent position. No complications CONCLUSION: Intraoperative films demonstrate lumbar fusion Electronically signed by: Anselmo Dobbins MD 08/03/2018 5:19 PM EDT
--- NOTE | 2018-08-03 17:29 | P.OP ---
Preoperative Diagnosis: Lumbar spondylolisthesis Postoperative Diagnosis: Lumbar spondylolisthesis Date of procedure: 08/03/18 Procedure: L3-L4, L4-5 laminectomy, interbody arthrodhesis using PEEK cage and autologous bone graft, L3-L4, L4-5 instrumental fixation using transpedicular screws and rods, L3-L4, L4-5 posterolateral fusion using autologous bone graft and rods. Microsurgical dissection Anesthesia: RACHAELA Surgeon: Awais Alonso MD Barker Operator: Addis Deluca Pathology: none sent Operation and Findings: INDICATIONS FOR THE SURGICAL PROCEDURE Ms Montenegro is a 73 year-old male who presented with intractable mechanical back pain and sissy evidence of right L4 and L5 lower extremity radiculopathy. She had severe spondylosis with facet arthropathy with spondylolisthesis at L4-5 and loss severe secondary stenosis at L3-L4. She failed maximum nonsurgical management including multiple modalities of conservative treatment as well as pain management interventions by an interventional pain specialist. A surgical decompression and arthrodhesis were indicated as a last resort. The [id number] details of the procedure, indications, alternatives, risks and potential complications were fully discussed with the patient. The patient fully understood. All the questions were answered. No guarantees were given. The patient voiced requesting the procedure and provided informed consents. The patient was offered the alternative of delaying the procedure and continuing with nonsurgical management. DETAILS OF THE SURGICAL PROCEDURE Prior to the procedure, the surgical incision was marked in the preoperative surgical holding room, and the procedure, risks, and potential complications revisited with the patient. Placement of electrodes for intraoperative neurophysiological monitoring was completed. The patient was taken to the operative room, and following induction of general anesthesia, endotracheal intubation was performed. A Roblero catheter, bilateral MICHELLE hose and sequential compression devices were placed and kept throughout the procedure. The patient was positioned prone, over a Vitaly table over a Mick frame. All pressure in the preoperative surgical holding room points were carefully padded with eggcrate and gel mattress. The eyes were tapped shut after ointment was applied by the anesthesiologist to prevent corneal abrasion. A Tesfaye hugger was placed over the exposed lower body to maintain control of the core body temperature. The electrophysiological team placed the needles and electrodes in their proper location and baseline SSEP's and motor evoked potentials were registered prior and following the positioning. The entrance to each pedicles was marked using a C arm. The lumbar region was prepped and draped in the usual sterile fashion. The surgical procedure was performed in several steps as follow: SURGICAL APPROACH Once the patient was positioned, a localizing cross-table lateral x-ray was performed with a C-arm. Two paramedian small incisions were outlined on the skin approximately 3cm from the midline. The skin incisions were made with a # 10 blade. Small bleeders were controlled with the cautery. The dissection was then carried out into deper planes and through the thoracolumbar fascia with a Bovie. The intermuscular septum was identified and the myscles were blunted dissected along the septum. The facets and transverse process of L3, L4, L5 were exposed and the proper anatomical landmarks were identified. A microsurgical self-retaining retractor was placed on the incision, and a localizing lateralizing cross-table x-ray was performed with an instrument underneath a lamina of the lumbar spine. INSTRUMENTAL FIXATION At this point in the procedure, placement of bilateral transpedicular screws was necessary for stabilization of the spine. Initially, the entry point for the screw was selected anatomically at the junction of the facet, with the transverse process, and the pars interarticularis at L3, L4, and L5. This was started with a Giamshetti needle, followed by the use of an benoit wire, and then a tap was used to create the threads for the screws. Finally bilateral transpedicular screws were carefully placed bilaterally at L3, L4, L5 under fluoroscopic visualization. An appropriate purchase was achieved with all screws. The position of each screw was assessed anatomically with an AP, lateral , oblique Xrays. An intraoperative scan view of the spine was then performed using the iso-centric c-arm. Each screw was then assessed electrophysiologically with a nerve stimulator. SURGICAL DECOMPRESSION There was significant mass effect with compression of the neural structures. In order to relieve neural compression, it was necessary to perform a decompressive laminectomy, with decompression of the spinal canal and bilateral lateral recesses. Note that the scope of such decompression was significantly more extensive than the minimal exposure necessary to perform an interbody fusion, as there was extreme facet arthropathy with near complete collapse of the disk spaces and severe stenosis cause by the hyperthrophic joint facets. At this point of the procedure the operative microscope was draped in the usual sterile fashion and brought to the field. The rest of the surgical procedure was performed using microdissection technique with the exception of the closure. Under the operating microscope, a decompressive laminectomy was carried out at L3-4, and L4-5 as follow: The laminae, base of the spinous processes and facets were carefully drilled exposing the ligamentum flavum. The facets were abnormal with severe facet arthropathy, vacuum facets, and mass effect over the neural structures. A broad disk protusion was contributing to compression of the neural structures and exiting L4 and L5 nerve roots. A near complete facetectomy was necessary resulting in further mechanical instability. The ligamentum flavum appeared hypertrophic, resulting on mass effect on the dorsal surface of the neural structures. The superior free border of the ligamentum flavum was elevated with a ligament dissector and the ligamentum flavum was removed with a 3 and 4 mm Kerrison forceps. The ligament was very adherent to the dural sac and during the dissection, ans extreme care was taken during the dissection. The exiting nerve roots were identified, and a wide foraminotomy was performed with a Kerrison in their trajectory towards the neural foraminal at both levels. Epidural veins located laterally to the dural sac were coagulated with the bipolar cautery, and then incised using microscissors. Gentle medial retraction of the dural sac allowed me to expose the disc space for the discectomy. Upon completion of the discectomy, an excellent decompression of the neural structures was achieved. INTERBODY ARTHRODHESIS In order to correct the narrowing of the disk space and maintain distraction of the space, and to achieve a solid interbody fusion, it was necessary the insertion of an interbody device into the disk space. Otherwise, the disk space would collapse, compromising the result of the surgical procedure. At this point of the procedure, the annulus fibrosus of the disk at L3-4 and L4- 5 were carefully coagulated with a bipolar cautery and incised using an 11 bladed knife. Then, a microdiscectomy was carried out in a standard fashion using a combination of straight and up-biting pituitary forceps. A reverse angle curette was applied underneath the posterior longitudinal ligament, and used to push the disk fragments into the disk space, so they can be safely removed with a pituitary forceps. Once the discectomy was completed, it was necessary to decorticate the endplates, in order to eliminate the cartilaginous endplate and to expose healthy bone appropriate to perform the interbody fusion. The endplates at L3-4 and L4-5 were then thoroughly decorticated using increasing size bone donald and ring curets, eliminating the cartilaginous fragments from both, the superior and inferior endplates. A disk space distractor was applied to the pedicle screws and gentle distraction was applied. This maneuver was assisted by the use of a disk distractor. Once a thorough preparation of the disk space was achieved, the disk space was irrigated with antibiotic solution, and the interbody fusion was performed by carefully impacting expandable PEEK cages filled with autologous iliac crest bone graft. A solid position of the cage with good purchase was achieved at both levels. The position of the cages were assessed anatomically with a probe and radiologically with the C-arm. POSTEROLATERAL FUSION The posterolateral fusion is a critical component to the procedure, to prevent future fatigue and failure of the instrumental fixation. Initially, the transverse processes of the vertebral bodies, lateral surface of the facets and the lateral gutters of the spine were carefully cleaned, eliminating all soft tissue and muscle attachments. The area was then irrigated with a large amount of antibiotic solution. Subsequently, the transverse processes, lateral surface of the facets, and lateral gutters of the spine were thoroughly decorticated using the TPS drill with a 5mm cutting zulema, exposing cancellous bone, in preparation for the posterolateral fusion. The incision was again irrigated with antibiotic solution. Then, the posterolateral fusion was then performed by carefully packing the lateral gutters of the spine at L3-4 and L4-5 with autologous bone combined with demineralized bone matrix. COMPLETION OF THE INSTRUMENTATION AND CLOSURE The rods were brought to the field, applied to all the screws, and the screw caps were sequentially applied. Compression was performed between the pedicle screws, and final tightening of the screws was completed using a torque wrench The incision was again thoroughly irrigated with several liters of antibiotic solution, and hemostasis secured with the bipolar cautery. A Valsalva Maneuver performed by the anesthesiologist failed to show any evidence of cerebrospinal fluid leak or bleeding. A 7 mm Vitaly-Low drain was left in the epidural space and externalized through a separate stab incision. The incision was then closed in planes. 0 Vicryl was used in an interrupted fashion to close the thoracolumbar fascia and the superficial fascia. The subcutaneous tissue was then approximated using 3-0 Vicryl in an interrupted fashion. Special care was taken to avoid space. The skin was then closed with 4-0 Vicryl in a running, subcuticular fashion. Dermabond was applied to the skin. Each plane of closure was irrigated with antibiotic solution. At the end of the procedure the sponge, needle and instrument counts were all correct. Estimated blood loss was 500 cc or less. No blood transfusion was given. The entire procedure was performed using continuous electrophysiological monitoring of the somatosensorial evoked potentials and EMG. The patient received prophylactic antibiotics. The patient was then extubated and transferred to the recovery room in stable condition
[2018-08-03] MEDS: HYDROmorphone PCA Inj 6 MG/30 ML PCA.VIAL PCA PRN (17:53)
[2018-08-03] MEDS ORDERED: Morphine Inj 4 MG/ML Vial ONE (17:59)
[2018-08-03] MEDS ORDERED: fentaNYL Citrate Inj 100 MCG/2 ML Ampul ONE (17:59)
[2018-08-03] MEDS: Senna/Docusate Sodium 8.6/50 MG Tablet PO SCH (20:26)
[2018-08-03] MEDS: Calcium Carbonate 500 MG Tablet PO SCH (20:26)
[2018-08-03] MEDS: ceFAZolin 2 GM Premix Inj 2 GM/50 ML PIGGYBACK IV.SIG SCH (22:20)
[2018-08-04] MEDS: ceFAZolin 2 GM Premix Inj 2 GM/50 ML PIGGYBACK IV.SIG SCH (05:12)
[2018-08-04 06:52] LABS: Baso % (Auto) 0.1 % (0.0-2.0); Eos % (Auto) 0.1 % (0.0-4.0); Hematocrit 33.9 % (35.0-46.0); Hemoglobin 11.2 gm/dL (11.6-15.3); Lymph # (Auto) 1.3 th/mm3 (1.0-4.8); Lymph % (Auto) 7.7 % (9.0-44.0); Mean Corpuscular HGB Conc 33.1 % (32.0-36.0); Mean Corpuscular Hemoglobin 29.4 pg (27.0-34.0); Mean Corpuscular Volume 88.6 fL (80.0-100.0); Mean Platelet Volume 9.1 fL (7.0-11.0); Mono # (Auto) 1.4 th/mm3 (0.0-0.9); Mono % (Auto) 8.5 % (0.0-8.0); Neut # (Auto) 13.7 th/mm3 (1.8-7.7); Neut % (Auto) 83.6 % (16.0-70.0); Platelet Count 259 th/mm3 (150-450); Red Blood Count 3.83 mil/mm3 (4.00-5.30); Red Cell Distribution Width 13.8 % (11.6-17.2); White Blood Count 16.4 th/mm3 (4.0-11.0)
[2018-08-04 07:03] LABS: Calcium 7.8 mg/dL (8.5-10.1); Carbon Dioxide 24.2 meq/L (21.0-32.0); Potassium 4.3 meq/L (3.5-5.1)
[2018-08-04] MEDS ORDERED: ceFAZolin 2 GM Premix Inj 2 GM/100 ML BAG IV.SIG SCH (10:00)
--- NOTE | 2018-08-04 10:13 | P.PNNS ---
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 Physical Exam Vital signs: Vital Signs 08/03/18 16:49 08/03/18 17:00 08/03/18 17:15 Temperature 97 F L Pulse Rate 99 H 108 H 108 H Respiratory Rate 18 18 18 Blood Pressure 127/85 129/79 127/75 Pulse Oximetry 100 100 100 08/03/18 17:30 08/03/18 17:57 Temperature Pulse Rate 104 H 101 H Respiratory Rate 15 17 Blood Pressure 123/76 119/74 Pulse Oximetry 100 100 Intake & Output 08/03/18 08/04/18 08/04/18 18:59 06:59 18:59 Intake Total 3200 / 3200 100 / 100 Output Total 1470 / 1470 1050 / 1050 Balance 1730 / 1730 -950 / -950 Weight 90 kg 89.8 kg Intake: IV 1300 / 1300 100 / 100 LR 1000 mL Inj 1,000 ML @ 30 1000 / 1000 mls/hr IV.SIG .Q24H KEVIN Rx#: [id number] Vancomycin Inj 1,000 MG In NS 250 / 250 Inj 250 ML @ 250 mls/hr IV.SIG FOOT AND ANKLE SURGEON KEVIN Rx#:[id number] Ancef 2 GM Premix Inj 2 gm In 50 / 50 100 / 100 50 ml @ 100 mls/hr IV.SIG Q8H KEVIN Rx#:[id number] Oral 100 / 100 Anesthesia Amount 1800 / 1800 Output: Urine 525 / 525 Estimated Blood Loss 500 / 500 Urine Amount (Catheter) 910 / 910 525 / 525 Indwelling Urethral Catheter 910 / 910 525 / 525 Wound Drainage 60 / 60 Medial Back AVANI Drain 60 / 60 Other: Date of Last Bowel Movement 08/02/18 Weight On Admission 90 kg Narrative: Awake, alert NAD in bed moving major muscle groups of LE's well - Urinary Catheter Management Indwelling Urethral Catheter Cath placed during this visit: yes Reason for continuing: Hourly intake/output Insertion date: 08/03/18 Insertion time: 08:45 Assessment and Plan - Plan Impression: POD 1 s/p L3-L4, L4-5 laminectomy, interbody arthrodhesis using PEEK cage and autologous bone graft, L3-L4, L4-5 instrumental fixation using transpedicular screws and rods, L3-L4, L4-5 posterolateral fusion using autologous bone graft and rods. Microsurgical dissection (08/03) Plan: cont FABRIC AWNING REPAIRER for pain control custom TLSO when out of bed SCDs and TEDs for dvt prophylaxis Protonix for stress ulcer prophylaxis appreciate medical assistance
[2018-08-04] MEDS: Calcium Carbonate 500 MG Tablet PO SCH ×2 (10:18→21:06)
[2018-08-04] MEDS: Senna/Docusate Sodium 8.6/50 MG Tablet PO SCH ×2 (10:18→21:06)
[2018-08-05] MEDS: Calcium Carbonate 500 MG Tablet PO SCH ×2 (10:06→22:04)
[2018-08-05] MEDS: Senna/Docusate Sodium 8.6/50 MG Tablet PO SCH ×2 (10:06→22:03)
[2018-08-05] MEDS: HYDROmorphone PCA Inj 6 MG/30 ML PCA.VIAL PCA PRN (12:01)
--- NOTE | 2018-08-05 16:41 | P.PNNS ---
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 awaiting her custom TLSO brace to be brought in today. Physical Exam Vital signs: Vital Signs 08/04/18 20:00 08/05/18 00:00 08/05/18 04:00 Temperature 99.7 F H 99.2 F 98.9 F Pulse Rate 96 H 99 H 95 H Respiratory Rate 17 17 17 Blood Pressure 125/77 124/59 L 144/64 H Pulse Oximetry 100 95 96 08/05/18 08:00 08/05/18 12:00 08/05/18 12:31 Temperature 99.2 F 100.3 F H Pulse Rate 93 H 93 H Respiratory Rate 17 18 18 Blood Pressure 138/65 152/68 H Pulse Oximetry 97 99 08/05/18 16:31 Temperature Pulse Rate Respiratory Rate 18 Blood Pressure Pulse Oximetry Intake & Output 08/04/18 08/05/18 08/05/18 18:59 06:59 18:59 Intake Total 820 / 820 240 / 240 Output Total 400 / 400 2150 / 2150 Balance 420 / 420 -1910 / -1910 Weight 89 kg Intake: IV 100 / 100 Ancef 2 GM Premix Inj 2 gm In 100 / 100 100 ml @ 100 mls/hr IV.SIG Q8H KEVIN Rx#:[id number] Oral 720 / 720 240 / 240 Output: Urine 400 / 400 1075 / 1075 Urine Amount (Catheter) 1075 / 1075 Indwelling Urethral Catheter 1075 / 1075 Other: Date of Last Bowel Movement 08/02/18 08/02/18 08/02/18 # Bowel Movements 0 - Constitutional no acute distress, morbidly obese - Routine Neck Exam Present: trachea midline - Routine Neurological Exam Present: alert - Detailed Neurological Exam: Coma Scale Motor Response: Obey commands - Routine Psychiatric Exam Present: normal affect - Urinary Catheter Management Indwelling Urethral Catheter Cath placed during this visit: yes Reason for continuing: Hourly intake/output Insertion date: 08/03/18 Insertion time: 08:45 Assessment and Plan - Plan Impression: POD 2 s/p L3-L4, L4-5 laminectomy, interbody arthrodhesis using PEEK cage and autologous bone graft, L3-L4, L4-5 instrumental fixation using transpedicular screws and rods, L3-L4, L4-5 posterolateral fusion using autologous bone graft and rods. Microsurgical dissection (08/03) Plan: cont [employer] DE[employer]ENTS for pain control custom TLSO when out of bed SCDs and TEDs for dvt prophylaxis Protonix for stress ulcer prophylaxis appreciate medical assistance kole cotton once mobilizing
[2018-08-06] MEDS: Calcium Carbonate 500 MG Tablet PO SCH ×2 (08:31→20:36)
[2018-08-06] MEDS: Senna/Docusate Sodium 8.6/50 MG Tablet PO SCH ×2 (08:32→20:37)
--- NOTE | 2018-08-06 10:35 | P.PNNS ---
Subjective Interval history: 08/06: got out of bed this morning, c/o brace pushing against her hips and very uncomfortable. otherwise she is doing better minimal back pain. +BM Physical Exam Vital signs: Vital Signs 08/05/18 12:00 08/05/18 12:31 08/05/18 16:00 Temperature 100.3 F H 99.7 F H Pulse Rate 93 H 93 H Respiratory Rate 18 18 18 Blood Pressure 152/68 H 152/68 H Pulse Oximetry 99 94 L 08/05/18 16:31 08/05/18 17:08 08/05/18 17:38 Temperature Pulse Rate Respiratory Rate 18 18 18 Blood Pressure Pulse Oximetry 08/05/18 20:00 08/06/18 00:00 08/06/18 04:00 Temperature 99 F 99.5 F 98 F Pulse Rate 88 88 79 Respiratory Rate 18 18 18 Blood Pressure 160/71 H 174/76 H 113/54 L Pulse Oximetry 95 98 97 Intake & Output 08/05/18 08/06/18 08/06/18 18:59 06:59 18:59 Intake Total 960 / 960 Output Total 1100 / 1100 1250 / 1250 Balance -140 / -140 -1250 / -1250 Weight 89 kg Intake: Oral 960 / 960 Output: Urine 1250 / 1250 Urine Amount (Catheter) 1100 / 1100 Indwelling Urethral Catheter 1100 / 1100 Other: # Voids 2 Date of Last Bowel Movement 08/02/18 08/06/18 # Bowel Movements 1 Narrative: Awake, alert. speech fluent Lumbar wound clean and dry with dermabond prineo dressing intact moving major muscle groups of LE's well - Urinary Catheter Management Indwelling Urethral Catheter Cath placed during this visit: yes, but has since been removed by the nurse Reason for continuing: Hourly intake/output Insertion date: 08/03/18 Insertion time: 08:45 Removal date: 08/05/18 Removal time: 20:15 Assessment and Plan - Plan Impression: POD 3 s/p L3-L4, L4-5 laminectomy, interbody arthrodhesis using PEEK cage and autologous bone graft, L3-L4, L4-5 instrumental fixation using transpedicular screws and rods, L3-L4, L4-5 posterolateral fusion using autologous bone graft and rods. 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
[2018-08-07] MEDS: Calcium Carbonate 500 MG Tablet PO SCH (08:02)
[2018-08-07] MEDS: Senna/Docusate Sodium 8.6/50 MG Tablet PO SCH (08:02)
[2018-08-07] MEDS ORDERED: Acetaminophen 500 MG Tablet PO PRN (09:58)
--- NOTE | 2018-08-07 11:00 | P.PNNS ---
Subjective Interval history: No acute events overnight. Physical Exam Vital signs: Vital Signs 08/06/18 11:13 08/06/18 14:05 08/06/18 14:51 Temperature 98.5 F 98.3 F Pulse Rate 88 88 Respiratory Rate 14 16 16 Blood Pressure 116/58 L 125/60 Pulse Oximetry 94 L 98 08/06/18 15:13 08/06/18 16:00 08/06/18 20:00 Temperature 98.3 F 100.3 F H Pulse Rate 85 91 H Respiratory Rate 18 16 18 Blood Pressure 111/55 L 116/58 L Pulse Oximetry 97 98 08/07/18 00:00 08/07/18 00:06 08/07/18 04:00 Temperature 98.6 F 98.1 F Pulse Rate 87 87 Respiratory Rate 18 14 18 Blood Pressure 118/56 L 139/66 Pulse Oximetry 98 99 08/07/18 08:00 08/07/18 08:02 Temperature 99.7 F H Pulse Rate 88 Respiratory Rate 18 16 Blood Pressure 125/58 L Pulse Oximetry 97 Intake & Output 08/06/18 08/07/18 08/07/18 18:59 06:59 18:59 Intake Total 40 / 40 Balance 40 / 40 Weight 92.3 kg Intake: Oral 40 / 40 Other: # Voids 2 Date of Last Bowel Movement 08/05/18 08/05/18 Narrative: Awake, alert. Lumbar wound clean and dry 5/5 strength bilateral lower extremities - Urinary Catheter Management Indwelling Urethral Catheter Cath placed during this visit: yes, but has since been removed by the nurse Reason for continuing: Hourly intake/output Insertion date: 08/03/18 Insertion time: 08:45 Removal date: 08/05/18 Removal time: 20:15 Assessment and Plan - Plan Impression: POD 3 s/p L3-L4, L4-5 laminectomy, interbody arthrodhesis using PEEK cage and autologous bone graft, L3-L4, L4-5 instrumental fixation using transpedicular screws and rods, L3-L4, L4-5 posterolateral fusion using autologous bone graft and rods. Microsurgical dissection (08/03) Plan: Per KAI WhartonO brace when out of bed. SCDs and TEDs for dvt prophylaxis Protonix for stress ulcer prophylaxis Discharge to rehab today.
[2018-08-07 12:08] VITALS: BP 124/57; PULSE 81; RESP 18; TEMP 98.1; O2SAT 99
--- NOTE | 2018-08-09 14:47 | P.DS ---
Date of admission: 08/03/18 06:23 Primary care physician: Bro Rico MD Brief History from admission: Ms Montenegro is a 73 year-old male who presented with intractable mechanical back pain and sissy evidence of right L4 and L5 lower extremity radiculopathy. She had severe spondylosis with facet arthropathy with spondylolisthesis at L4-5 and loss severe secondary stenosis at L3-L4. She failed maximum nonsurgical management including multiple modalities of conservative treatment as well as pain management interventions by an interventional pain specialist. A surgical decompression and arthrodhesis were indicated as a last resort. DS: Medications - Discharge Medications Prescriptions: hydrocodone-acetaminophen 1 tab PO Q4-6H PRN 7 Days #30 tab PRN Reason: Pain Scale 1 To 5 DS: Summary Hospital Course: Ms. Montenegro underwent L3-L4, L4-5 laminectomy, interbody arthrodhesis using PEEK cage and autologous bone graft, L3-L4, L4-5 instrumental fixation using transpedicular screws and rods, L3-L4, L4-5 posterolateral fusion using autologous bone graft and rods. Microsurgical dissection for Lumbar spondylolisthesis on 08/03/18. Her surgery went well without complications. She was placed on a custom TLSO brace. She was discharged in stable conditions. - Time Spent with Patient Total time spent providing and/or coordinating discharge services: Less than 30 minutes - Quality: VTE Deep Vein Thrombosis/Pulmonary Embolism Present on Admission: No Results Procedures completed during hospitalization: L3-L4, L4-5 laminectomy, interbody arthrodhesis using PEEK cage and autologous bone graft, L3-L4, L4-5 instrumental fixation using transpedicular screws and rods, L3-L4, L4-5 posterolateral fusion using autologous bone graft and rods. Microsurgical dissection - Impressions ITS Impressions Lumbar Spine X-Ray 08/03/18 00:00 CONCLUSION: Intraoperative films demonstrate lumbar fusion Discharge Plan - Discharge Disposition Patient Disposition: Discharge to SNF - Discharge Condition Condition: Good - Discharge Order Discharge Orders: Discharge Order (Routine); Ordered 08/07/18 Ordered By: Mika Hatfield - Physicians Team Primary Care Provider: Bro Rico Attending Provider: Awais Alonso Other Providers: Madi Augustin MD ; Matias Barahona MD ; [facility] - Rxs /Orders / Referrals /Forms Prescriptions: New hydrocodone-acetaminophen 10-325 mg Tablet 1 tab PO Q4-6H PRN (Reason: Pain Scale 1 To 5) 7 Days Qty: 30 RF: 0 Continue acetaminophen [Acetaminophen Extra Strength] 500 mg Tablet 500 mg PO DAILY PRN (Reason: Pain) alendronate 70 mg Tablet 70 mg PO QWEEK aspirin 81 mg Tablet,Chewable 81 mg PO DAILY calcium carbonate-vitamin D3 [Calcium 600 + D(3)] 600 mg calcium- 200 unit Capsule 1 tab PO BID multivitamin [Daily Multi-Vitamin] Tablet 1 tab PO DAILY Referrals: Bro Rico MD [Primary Care Provider] - See Instructions - Discharge Instructions Patient Printed Instructions: Laminectomy (DC) Additional Instructions: Dr. Alonso has advised you to wear your TLSO when out of bed. No lifting more than 10 lbs. Follow-up with Dr. Alonso as previously scheduled.
== END 2018-08-07 16:21 ==
LOC: HSDI 08-03 06:23 → N06 08-03 18:12
PROVIDERS: ADMIT Neurological Surgery; ATTEND Neurological Surgery
PROC: LAMPLIF (2018-08-03 08:21)

== ENCOUNTER 2018-08-24 13:14 | Inpatient (IN) ==
--- NOTE | 2018-08-24 14:28 | P.HPNS ---
<Sally Vazquez - Last Filed: 08/25/18 11:13> History of Present Illness Service: Neurosurgery Primary Care Physician: UNKNOWN Chief Complaint: lumbar wound drainage History of Present Illness: Ms. Montenegro is a 73 year old female who underwent L3-L4, L4-5 laminectomy, interbody arthrodhesis using PEEK cage and autologous bone graft, L3-L4, L4-5 instrumental fixation using transpedicular screws and rods, L3-L4, L4-5 posterolateral fusion using autologous bone graft and rods. Microsurgical dissection for Lumbar spondylolisthesis on 08/03/18. At her initial postop appointment on 08/10/18, she had developed fluid filled blisters on her wound, and drainage which appeared to be an allergic reaction. She was brought back last week (08/17/18) for a wound check, and her wound appeared to be healing better at that time with less drainage. She returned again today for a follow up wound check and she continues to be draining from her wound. Her dressing was saturated. She also appeared to have developed eschar tissue which was not present previously. She is being admitted to start IV antibiotic treatment, she will be undergoing I&D of her wound tomorrow. Inpatient Certification: I certify that the inpatient services were ordered in accordance with Medicare regulations governing the order. This includes certification that hospital inpatient services are reasonable and necessary and in the case of services not specified as inpatient-only under 42 CFR 419.22(n), that they are appropriately provided as inpatient services in accordance to with the 2-midnight benchmark under 43 CFR 412.3(e) Review of Systems Constitutional: Reports chills, Reports fatigue Eyes: Denies change in vision Cardiovascular: Denies chest pain, Denies chest pain with activity Respiratory: Denies cough, Denies coughing up blood Gastrointestinal: Denies abdominal pain, Denies bright, red blood in stools Musculoskeletal: Reports limited joint movement, Reports numbness, Reports stiffness, Denies back pain Skin/Breast: Reports non-healing lesions, Reports wounds Neurologic: Reports numbness, Reports tingling/numbness/burning sensations PMFSH - History History Provided By: Medical Record - Medical History Medical History: Medical History (Last Reviewed 08/24/18 @ 14:55 by SERGEY Tadeo) Fusion of lumbar spine Anxiety Cataracts, bilateral Chronic osteoarthritis Depression Diverticulosis H/O sigmoidoscopy History of hysterectomy Hyperlipidemia Lumbar spinal stenosis Obesity Osteoporosis Post-phlebitic syndrome Right lumbar radiculopathy Thrombocytosis Uterine leiomyoma - Surgical History Surgical History: Surgical History (Last Reviewed 08/24/18 @ 14:55 by SERGEY Tadeo) H/O colonoscopy H/O hand surgery H/O tubal ligation History of back surgery History of hammertoe correction History of phacoemulsification of cataract of left eye with intraocular lens implantation History of right hip replacement History of tonsillectomy and adenoidectomy History of total left knee replacement - Social History I have reviewed the patient's Social History: Yes - Tobacco History Second Hand Smoke Exposure: No Smoking Status: Never smoker - Alcohol History How Often Do You Have a Drink Containing Alcohol: Never - Substance Use History Substance History: No History of Abuse Medications and Allergies Allergies Allergy/AdvReac Type Severity Reaction Status Date / Time No Known Allergies Allergy Verified 08/03/18 07:18 Home Medications Medication Instructions Recorded Confirmed Type alendronate 70 mg PO QWEEK 05/12/18 08/03/18 History aspirin 81 mg PO DAILY 05/12/18 08/03/18 History calcium carbonate-vitamin D3 1 tab PO BID 05/12/18 08/03/18 History [Calcium 600 + D(3)] multivitamin [Daily Multi-Vitamin] 1 tab PO DAILY 05/12/18 08/03/18 History acetaminophen [Acetaminophen Extra 500 mg PO DAILY PRN 05/26/18 08/03/18 History Strength] Exam Narrative: General: Ms. Montenegro is in no apparent distress. HEENT: normocephalic. Pupils equal. Nonicteric sclera. Mucous membranes pink. Neck: soft, supple Neuro: Alert, awake. Speech fluent. Follows commands without difficulties. Cranial nerve examination: pupils equal, round and reactive to light. Extra- ocular movements are intact. Facial motor are normal and symmetrical. Musclestrength is 5/5 to both deltoid, biceps, triceps, and chrome plater helper in the upper extremities. 5/5 to both iliopsoas, quadriceps, hamstrings, plantarflexion, dorsiflexion, and EHL in the lower extremities. Heart: regular rate rhythm Lungs: clear, no wheezing. nonlabored breathing on room air. Skin: Lumbar wound: There is yellow and light green slough with eschar tissue. Her dressing was saturated with yellow pink drainage. Gait: ambulates with rolling walker. Results - Laboratory Findings CBC and BMP: 08/24/18 17:20 08/24/18 17:20 Caprini VTE Risk Assessment Caprini VTE Risk Assessment: Moderate/High Risk (score >= 2) VTE Pharmacological Exception Reason: Spinal surgery Caprini Risk Assessment Model: Point Value = 1 Point Value = 2 Point Value = 3 Point Value = 5 Age 41-60 Minor surgery BMI > 25 kg/m2 Swollen legs Varicose veins or History of unexplained or recurrent spontaneous Oral contraceptives or hormone replacement Sepsis (< 1 month) Serious lung disease, including pneumonia (< 1 month) Abnormal pulmonary function Acute myocardial infarction Congestive heart failure (< 1 month) History of inflammatory bowel disease Medical patient at bed rest Age 61-74 Arthroscopic surgery Major open surgery (> 45 min) Laparoscopic surgery (> 45 min) Malignancy Confined to bed (> 72 hours) Immobilizing plaster cast Central venous access Age >= 75 History of VTE Family history of VTE Factor V Leiden Prothrombin [id number] Lupus anticoagulant Anticardiolipin antibodies Elevated serum homocysteine Heparin-induced thrombocytopenia Other congenital or acquired thrombophilia Stroke (< 1 month) Elective arthroplasty Hip, pelvis, or leg fracture Acute spinal cord injury (< 1 month) Prophylaxis Regimen: Total Risk Factor Score Risk Level Prophylaxis Regimen 0-1 Low Early ambulation 2 Moderate Order ONE of the following: *Sequential Compression Device (SCD) *Heparin 5000 units SQ BID 3-4 Higher Order ONE of the following medications: *Heparin 5000 units SQ TID *Enoxaparin/Lovenox 40 mg SQ daily (WT < 150 kg, CrCl > 30 mL/min) *Enoxaparin/Lovenox 30 mg SQ daily (WT < 150 kg, CrCl > 10-29 mL/min) *Enoxaparin/Lovenox 30 mg SQ BID (WT < 150 kg, CrCl > 30 mL/min) AND/OR *Sequential Compression Device (SCD) 5 or more Highest Order ONE of the following medications: *Heparin 5000 units SQ TID (Preferred with Epidurals) *Enoxaparin/Lovenox 40 mg SQ daily (WT < 150 kg, CrCl > 30 mL/min) *Enoxaparin/Lovenox 30 mg SQ daily (WT < 150 kg, CrCl > 10-29 mL/min) *Enoxaparin/Lovenox 30 mg SQ BID (WT < 150 kg, CrCl > 30 mL/min) AND *Sequential Compression Device (SCD) Assessment and Plan - Plan pt will require irrigation and debridement of her lumbar wound. to OR tomorrow for I&D NPO tonight she will be started on IV vancomycin per Dr. Alonso wound cultures <Awais Alonso - Last Filed: 08/25/18 15:00> History of Present Illness Primary Care Physician: Bro Rico MD Inpatient Certification: I certify that the inpatient services were ordered in accordance with Medicare regulations governing the order. This includes certification that hospital inpatient services are reasonable and necessary and in the case of services not specified as inpatient-only under 42 CFR 419.22(n), that they are appropriately provided as inpatient services in accordance to with the 2-midnight benchmark under 43 CFR 412.3(e) [facility] - Medical History Medical History: Medical History (Last Reviewed 08/24/18 @ 14:55 by SERGEY Tadeo) Fusion of lumbar spine Anxiety Cataracts, bilateral Chronic osteoarthritis Depression Diverticulosis H/O sigmoidoscopy History of hysterectomy Hyperlipidemia Lumbar spinal stenosis Obesity Osteoporosis Post-phlebitic syndrome Right lumbar radiculopathy Thrombocytosis Uterine leiomyoma - Surgical History Surgical History: Surgical History (Last Reviewed 08/24/18 @ 14:55 by SERGEY Tadeo) H/O colonoscopy H/O hand surgery H/O tubal ligation History of back surgery History of hammertoe correction History of phacoemulsification of cataract of left eye with intraocular lens implantation History of right hip replacement History of tonsillectomy and adenoidectomy History of total left knee replacement Medications and Allergies Active Medications: Active Medications Acetaminophen (Tylenol) 650 mg PO Q4H PRN PRN Reason: TEMP > 101.5 Acetaminophen (Tylenol Liq) 650 mg NG/OG Q4H PRN PRN Reason: TEMP > 101.5 Acetaminophen (Tylenol Supp) 650 mg RECTAL Q4H PRN PRN Reason: TEMP > 101.5 Hydrocodone Bitart/Acetaminophen ([place] 10/325) 1 tab PO Q4H PRN PRN Reason: PAIN 1-5 Hydrocodone Bitart/Acetaminophen ([place] 10/325) 2 tab PO Q4H PRN PRN Reason: PAIN 6-10 Al Hydroxide/Mg Hydroxide (Milk Of Magnesia Liq) 30 ml PO Q12H PRN PRN Reason: Mild Constipation Albuterol (Albuterol Neb (Prn)) 2.5 mg NEB Q4HR NEB PRN PRN Reason: FOR WHEEZING Bisacodyl (Dulcolax Supp) 10 mg RECTAL DAILY PRN PRN Reason: SEVERE CONSITIPATION Docusate Sodium (Colace Liq) 100 mg PO BID [facility] Last Admin: 08/25/18 09:09 Dose: Not Given Lactated Ringer's (Lr 1000 Ml Inj) 1,000 mls @ 30 mls/hr IV.SIG .Q24H KEVIN Stop: 08/26/18 07:44 Sodium Chloride (Ns Inj) 500 mls @ 30 mls/hr IV.SIG .Q10H KEVIN Potassium Chloride/Sodium Chloride (Ns + Kcl 20 Meq Inj) 1,000 mls @ 100 mls/ hr IV.CONT .Q10H KEVIN Cefazolin Sodium/Dextrose (Ancef 2 Gm Premix Inj) 2 gm in 50 mls @ 100 mls/hr IV.SIG Q8H [facility] Stop: 08/26/18 10:29 Lactulose (Lactulose Liq) 30 ml PO DAILY PRN PRN Reason: SEVERE CONSITIPATION Ondansetron HCl (Zofran Inj) 4 mg IV.PUSH Q8H PRN PRN Reason: NAUSEA OR VOMITING Pantoprazole Sodium (Protonix) 40 mg PO DAILY [facility] Last Admin: 08/25/18 09:09 Dose: Not Given Pantoprazole Sodium (Protonix Inj) 40 mg IV.PUSH DAILY [facility] Last Admin: 08/25/18 09:13 Dose: 40 mg Senna/Docusate Sodium (Kristy-Colace) 1 tab PO BID [facility] Last Admin: 08/25/18 09:09 Dose: Not Given Sennosides (Senokot) 17.2 mg PO Q12H PRN PRN Reason: Moderate Constipation Exam Vital signs: Vital Signs 08/24/18 16:01 08/24/18 20:00 08/24/18 22:00 Temperature 98.0 F 98.6 F Pulse Rate 77 79 Respiratory Rate 16 18 16 Blood Pressure 140/71 132/68 Pulse Oximetry 100 100 08/25/18 00:00 08/25/18 00:45 08/25/18 02:47 Temperature 98.8 F Pulse Rate 88 80 Respiratory Rate 18 16 Blood Pressure 137/70 Pulse Oximetry 100 08/25/18 04:00 08/25/18 08:00 08/25/18 13:51 Temperature 98.9 F 98.3 F 97.8 F Pulse Rate 80 77 87 Respiratory Rate 18 17 12 Blood Pressure 114/56 L 128/61 114/58 L Pulse Oximetry 97 98 100 08/25/18 14:00 08/25/18 14:15 08/25/18 14:30 Temperature Pulse Rate 84 77 74 Respiratory Rate 12 10 L 17 Blood Pressure 124/64 123/63 113/56 L Pulse Oximetry 100 100 100 08/25/18 14:31 08/25/18 14:42 Temperature Pulse Rate Respiratory Rate 15 17 Blood Pressure Pulse Oximetry Intake & Output 08/24/18 08/25/18 08/25/18 18:59 06:59 18:59 Intake Total 100 / 100 500 / 500 Output Total 5 / 5 Balance 100 / 100 495 / 495 Weight 85.8 kg Intake: IV 100 / 100 Ancef 2 GM Premix Inj 2 gm In 100 / 100 50 ml @ 100 mls/hr IV.SIG Q8H [facility] Rx#:[id number] Anesthesia Amount 500 / 500 Output: Estimated Blood Loss 5 / 5 Other: Mode Setting Lower Posterior Back Continuous # Voids 2 Date of Last Bowel Movement 08/24/18 08/25/18 Weight On Admission 86.6 kg Narrative: General: Ms. Montenegro is in no apparent distress. HEENT: normocephalic. Pupils equal. Nonicteric sclera. Mucous membranes pink. Neck: soft, supple Neuro: Alert, awake. Speech fluent. Follows commands without difficulties. Cranial nerve examination: pupils equal, round and reactive to light. Extra- ocular movements are intact. Facial motor are normal and symmetrical. Musclestrength is 5/5 to both deltoid, biceps, triceps, and chrome plater helper in the upper extremities. 5/5 to both iliopsoas, quadriceps, hamstrings, plantarflexion, dorsiflexion, and EHL in the lower extremities. Heart: regular rate rhythm Lungs: clear, no wheezing. nonlabored breathing on room air. Skin: Lumbar wound: There is yellow and light green slough with eschar tissue. Her dressing was saturated with yellow pink drainage. Gait: ambulates with rolling walker. Her wounds show necrotic skin bilaterally with superficial dehiscence of her sutures Results - Laboratory Findings CBC and BMP: 08/24/18 17:20 08/24/18 17:20 Abnormal lab findings: Abnormal Labs 08/24/1818 18 17:20 17:20 18:40 RBC 3.75 L Hgb 10.6 L Hct 31.9 L Plt Count 675 H D [place] % (Auto) 8.2 H Estimated GFR 82 L Urine Clarity Hazy H Urine Ketones Trace H Ur Leukocyte Esterase Moderate H Urine WBC 18 H Urine Mucus Few H Caprini VTE Risk Assessment Caprini Risk Assessment Model: Point Value = 1 Point Value = 2 Point Value = 3 Point Value = 5 Age 41-60 Minor surgery BMI > 25 kg/m2 Swollen legs Varicose veins or History of unexplained or recurrent spontaneous Oral contraceptives or hormone replacement Sepsis (< 1 month) Serious lung disease, including pneumonia (< 1 month) Abnormal pulmonary function Acute myocardial infarction Congestive heart failure (< 1 month) History of inflammatory bowel disease Medical patient at bed rest Age 61-74 Arthroscopic surgery Major open surgery (> 45 min) Laparoscopic surgery (> 45 min) Malignancy Confined to bed (> 72 hours) Immobilizing plaster cast Central venous access Age >= 75 History of VTE Family history of VTE Factor V Leiden Prothrombin [id number] Lupus anticoagulant Anticardiolipin antibodies Elevated serum homocysteine Heparin-induced thrombocytopenia Other congenital or acquired thrombophilia Stroke (< 1 month) Elective arthroplasty Hip, pelvis, or leg fracture Acute spinal cord injury (< 1 month) Prophylaxis Regimen: Total Risk Factor Score Risk Level Prophylaxis Regimen 0-1 Low Early ambulation 2 Moderate Order ONE of the following: *Sequential Compression Device (SCD) *Heparin 5000 units SQ BID 3-4 Higher Order ONE of the following medications: *Heparin 5000 units SQ TID *Enoxaparin/Lovenox 40 mg SQ daily (WT < 150 kg, CrCl > 30 mL/min) *Enoxaparin/Lovenox 30 mg SQ daily (WT < 150 kg, CrCl > 10-29 mL/min) *Enoxaparin/Lovenox 30 mg SQ BID (WT < 150 kg, CrCl > 30 mL/min) AND/OR *Sequential Compression Device (SCD) 5 or more Highest Order ONE of the following medications: *Heparin 5000 units SQ TID (Preferred with Epidurals) *Enoxaparin/Lovenox 40 mg SQ daily (WT < 150 kg, CrCl > 30 mL/min) *Enoxaparin/Lovenox 30 mg SQ daily (WT < 150 kg, CrCl > 10-29 mL/min) *Enoxaparin/Lovenox 30 mg SQ BID (WT < 150 kg, CrCl > 30 mL/min) AND *Sequential Compression Device (SCD) Assessment and Plan - Plan Ms Montenegro will require irrigation and debridement of her lumbar wound. Harman discussed the [id number] details of the surgical procedure, its indications, alternatives, risks, and potential complications. Risks and potential complications include, but are not limited to, infection, blood loss, CSF leak, partial or complete loss of sight in one or both eyes, paresis, paralysis, permanent pain or difficulty swallowing, loss of bowel or bladder function, complications from anesthesia, blood clot, stroke, myocardial infarction, or even . The possibility of nonoperative treatment has been offered. Neuro: neuro checks in a serial fashion. Pulmonary: aggressive pulmonary toilette, nasotracheal suction, and breathing treatments with nebulizers. Daily PT and OT Renal: Continue to monitor closely urine output, BUN and creatinine Endocrine: Continue to Monitor serial Acu checks and SSI as needed in detail ID continue to monitor for signs of infection Continue Protonix for stress ulcer prophylaxis Continue Rian hose and SCD's for DVT prophylaxis Further recommendations will be provided depending on the patient's clinical evaluation and follow up studies. Harman discussed the [id number] details of the surgical procedure, its indications, alternatives, risks, and potential complications. Risks and potential complications include, but are not limited to, infection, blood loss, CSF leak, partial or complete loss of sight in one or both eyes, paresis, paralysis, permanent pain or difficulty swallowing, loss of bowel or bladder function, complications from anesthesia, blood clot, stroke, myocardial infarction, or even . The possibility of nonoperative treatment has been offered.
[2018-08-24] MEDS ORDERED: Bisacodyl 10 MG Supp RECTAL PRN (17:51)
[2018-08-24 17:55] LABS: Baso % (Auto) 0.4 % (0.0-2.0); Eos # (Auto) 0.2 th/mm3 (0.0-0.4); Hematocrit 31.9 % (35.0-46.0); Hemoglobin 10.6 gm/dL (11.6-15.3); Lymph % (Auto) 24.5 % (9.0-44.0); Mean Corpuscular HGB Conc 33.1 % (32.0-36.0); Mean Corpuscular Hemoglobin 28.2 pg (27.0-34.0); Mean Corpuscular Volume 85.1 fL (80.0-100.0); Mean Platelet Volume 7.4 fL (7.0-11.0); Mono # (Auto) 0.7 th/mm3 (0.0-0.9); Mono % (Auto) 8.2 % (0.0-8.0); Neut # (Auto) 5.4 th/mm3 (1.8-7.7); Neut % (Auto) 64.9 % (16.0-70.0); Platelet Count 675 th/mm3 (150-450); Red Blood Count 3.75 mil/mm3 (4.00-5.30); Red Cell Distribution Width 14.3 % (11.6-17.2); White Blood Count 8.3 th/mm3 (4.0-11.0)
[2018-08-24 18:12] LABS: Carbon Dioxide 25.7 meq/L (21.0-32.0); Potassium 3.8 meq/L (3.5-5.1)
[2018-08-24] MEDS ORDERED: Acetaminophen 325 MG Tablet PO PRN (18:50)
[2018-08-24] MEDS ORDERED: Acetaminophen 650 MG Supp RECTAL PRN (18:55)
[2018-08-24] MEDS: Senna/Docusate Sodium 8.6/50 MG Tablet PO SCH (20:06)
[2018-08-24] MEDS: ceFAZolin 2 GM Premix Inj 2 GM/50 ML PIGGYBACK IV.SIG SCH (20:06)
[2018-08-24] MEDS: Docusate Sodium Liq 100 MG/10 ML UDC PO SCH (20:06)
[2018-08-24 21:12] LABS: Bilirubin,Urine Negative (Negative); Clarity,Urine Hazy (Clear); Color,Urine Yellow (Yellw/Straw); Glucose,Urine (UA) Negative (Negative); Leukocyte Esterase,Urine Moderate (Negative); Mucus,Urine Few /lpf (Occasional); Nitrite,Urine Negative (Negative); Specific Gravity,Urine 1.029 (1.002-1.035); Squamous Epithelial Cell,Urine 3 /hpf (0-5)
[2018-08-25] MEDS: ceFAZolin 2 GM Premix Inj 2 GM/50 ML PIGGYBACK IV.SIG SCH ×2 (03:30→15:32)
[2018-08-25] MEDS ORDERED: Chlorhexidine Gluconate 2% 1 Pack (2 Cloths) TOPICAL ONE (07:40)
[2018-08-25] MEDS ORDERED: Metoprolol Tartrate 25 MG Tablet PO ONE (07:40)
[2018-08-25] MEDS ORDERED: Sodium Chlor 0.9% Inj 500 ML IV.SIG SCH (08:00)
--- NOTE | 2018-08-25 08:57 | ECG ---
Date Performed: 08/25/2018 Time Performed: 07:20:58 PTAGE: 73 years EKG: Sinus rhythm NORMAL ECG PREVIOUS TRACING : 02/10/2017 08.30 DOCTOR: Anselmo Liao Interpretating Date/Time 08/25/2018 08:55:49
[2018-08-25] MEDS: Docusate Sodium Liq 100 MG/10 ML UDC PO SCH ×2 (09:09→21:32)
[2018-08-25] MEDS: Senna/Docusate Sodium 8.6/50 MG Tablet PO SCH ×2 (09:09→21:32)
[2018-08-25] MEDS: Pantoprazole Inj 40 MG Vial IV.PUSH SCH (09:13)
[2018-08-25] MEDS ORDERED: Thrombin Topical Soln 5,000 UNIT Vial TOPICAL ONE (10:44)
[2018-08-25] MEDS ORDERED: Gelatin Size 100 Topical Foam ONE (10:44)
--- NOTE | 2018-08-25 11:19 | P.CONIM ---
History of Present Illness Service: [facility] Requesting Physician: Awais Alonso Reason for Consult: Medical management, wound infection Primary Care Provider: Bro Rico MD History of Present Illness: This is a 73-year-old male patient with past medical history which includes hyperlipidemia (not on medication), osteoarthritis, diverticulosis, anxiety, osteoporosis and lumbar spinal stenosis/chronic lumbar sacral pain. Patient is S/P L3-L4, L4-5 laminectomy, interbody arthrodesis using PEEK cage and autologous bone graft, L3-L4, L4-5 instrumental fixation using transpedicular screws and rods, L3-L4, L4-5 posterolateral fusion using autologous bone graft and rods. Microsurgical dissection for Lumbar spondylolisthesis on 08/03/18. Per neurosurgery documentation at her initial postop appointment on 08/10/18, she had developed fluid filled blisters on her wound, and drainage which appeared to be an allergic reaction. She was brought back last week (08/17/18) for a wound check, and her wound appeared to be healing better at that time with less drainage. She returned again today for a follow up wound check and she continues to be draining from her wound. Her dressing was saturated. She also appeared to have developed eschar tissue which was not present previously. She is being admitted to start IV antibiotic treatment, she will be undergoing I&D of her wound 08/25/18. We have been consult to assist in medical management of wound infection. Patient denies SOB, chest pain, N/V/D/C, fevers or shills. PMH: hyperlipidemia, osteoarthritis, diverticulosis, anxiety, osteoporosis and lumbar spinal stenosis/chronic lumbar sacral pain. PSxH: L3-L4, L4-5 laminectomy, interbody arthrodesis using PEEK cage and autologous bone graft, L3-L4, L4-5 instrumental fixation using transpedicular screws and rods, L3-L4, L4-5 posterolateral fusion using autologous bone graft and rods. Microsurgical dissection for Lumbar spondylolisthesis on 08/03/18, with Dr. Alonso. Arthroplasty for hammertoe, back surgery, complete colonoscopy, hand surgery, hip right hip surgery, hysterectomy, tonsillectomy and adenoidectomy, hip replacement, left knee replacement, tubal ligation Social history: Denies EtOH use or tobacco use FMH: Hypertension PMFSH - History History Provided By: Medical Record - Medical History Medical History: Medical History (Last Reviewed 08/31/18 @ 09:20 by Sergey Roper) Anxiety Cataracts, bilateral Chronic osteoarthritis Depression Diverticulosis Fusion of lumbar spine H/O sigmoidoscopy History of hysterectomy Hyperlipidemia Lumbar spinal stenosis Obesity Osteoporosis Post-phlebitic syndrome Right lumbar radiculopathy Thrombocytosis Uterine leiomyoma - Surgical History Surgical History: Surgical History (Last Reviewed 08/31/18 @ 09:20 by Sergey Roper) H/O colonoscopy H/O hand surgery H/O tubal ligation History of back surgery History of hammertoe correction History of phacoemulsification of cataract of left eye with intraocular lens implantation History of right hip replacement History of tonsillectomy and adenoidectomy History of total left knee replacement - Tobacco History Second Hand Smoke Exposure: No Smoking Status: Never smoker - Alcohol History How Often Do You Have a Drink Containing Alcohol: Never - Substance Use History Substance History: No History of Abuse Medications and Allergies Allergies Allergy/AdvReac Type Severity Reaction Status Date / Time No Known Allergies Allergy Verified 08/03/18 07:18 Home Medications Medication Instructions Recorded Confirmed Type alendronate 70 mg PO QWEEK 05/12/18 08/28/18 History aspirin 81 mg PO DAILY 05/12/18 08/28/18 History calcium carbonate-vitamin D3 1 tab PO BID 05/12/18 08/28/18 History [Calcium 600 + D(3)] multivitamin [Daily Multi-Vitamin] 1 tab PO DAILY 05/12/18 08/28/18 History acetaminophen [Acetaminophen Extra 500 mg PO DAILY PRN 05/26/18 08/28/18 History Strength] Active Medications: Active Medications Acetaminophen (Tylenol) 650 mg PO Q4H PRN PRN Reason: TEMP > 101.5 Acetaminophen (Tylenol Liq) 650 mg NG/OG Q4H PRN PRN Reason: TEMP > 101.5 Acetaminophen (Tylenol Supp) 650 mg RECTAL Q4H PRN PRN Reason: TEMP > 101.5 Hydrocodone Bitart/Acetaminophen ([place] 10/325) 1 tab PO Q4H PRN PRN Reason: PAIN 1-5 Hydrocodone Bitart/Acetaminophen ([place] 10/325) 2 tab PO Q4H PRN PRN Reason: PAIN 6-10 Al Hydroxide/Mg Hydroxide (Milk Of Magnesia Liq) 30 ml PO Q12H PRN PRN Reason: Mild Constipation Albuterol (Albuterol Neb (Prn)) 2.5 mg NEB Q4HR NEB PRN PRN Reason: FOR WHEEZING Bisacodyl (Dulcolax Supp) 10 mg RECTAL DAILY PRN PRN Reason: SEVERE CONSITIPATION Docusate Sodium (Colace Liq) 100 mg PO BID [facility] Last Admin: 08/25/18 09:09 Dose: Not Given Cefazolin Sodium/Dextrose (Ancef 2 Gm Premix Inj) 2 gm in 50 mls @ 100 mls/hr IV.SIG Q8H [facility] Last Infusion: 08/25/18 04:09 Dose: Infused Lactated Ringer's (Lr 1000 Ml Inj) 1,000 mls @ 30 mls/hr IV.SIG .Q24H [facility] Stop: 08/26/18 07:44 Sodium Chloride (Ns Inj) 500 mls @ 30 mls/hr IV.SIG .Q10H [facility] Lactulose (Lactulose Liq) 30 ml PO DAILY PRN PRN Reason: SEVERE CONSITIPATION Ondansetron HCl (Zofran Inj) 4 mg IV.PUSH Q8H PRN PRN Reason: NAUSEA OR VOMITING Pantoprazole Sodium (Protonix) 40 mg PO DAILY [facility] Last Admin: 08/25/18 09:09 Dose: Not Given Pantoprazole Sodium (Protonix Inj) 40 mg IV.PUSH DAILY [facility] Last Admin: 08/25/18 09:13 Dose: 40 mg Senna/Docusate Sodium (Kristy-Colace) 1 tab PO BID [facility] Last Admin: 08/25/18 09:09 Dose: Not Given Sennosides (Senokot) 17.2 mg PO Q12H PRN PRN Reason: Moderate Constipation Exam Vital signs: Vital Signs 08/24/18 16:01 08/24/18 20:00 08/24/18 22:00 Temperature 98.0 F 98.6 F Pulse Rate 77 79 Respiratory Rate 16 18 16 Blood Pressure 140/71 132/68 Pulse Oximetry 100 100 08/25/18 00:00 08/25/18 00:45 08/25/18 02:47 Temperature 98.8 F Pulse Rate 88 80 Respiratory Rate 18 16 Blood Pressure 137/70 Pulse Oximetry 100 08/25/18 04:00 08/25/18 08:00 Temperature 98.9 F 98.3 F Pulse Rate 80 77 Respiratory Rate 18 17 Blood Pressure 114/56 L 128/61 Pulse Oximetry 97 98 Intake & Output 08/24/18 08/25/18 08/25/18 18:59 06:59 18:59 Intake Total 100 / 100 Balance 100 / 100 Weight 85.8 kg Intake: IV 100 / 100 Ancef 2 GM Premix Inj 2 gm In 100 / 100 50 ml @ 100 mls/hr IV.SIG Q8H [facility] Rx#:[id number] Other: # Voids 2 Date of Last Bowel Movement 08/24/18 08/25/18 Weight On Admission 86.6 kg Narrative: GENERAL: This is a well-nourished, well-developed patient drowsy post anesthesia SKIN: post-operative wound vac intact CARDIOVASCULAR: Regular rate and rhythm RESPIRATORY: Clear to auscultation. Breath sounds equal bilaterally. GASTROINTESTINAL: Abdomen soft, non-tender, nondistended. Normal active bowel sounds MUSCULOSKELETAL: Extremities without clubbing, cyanosis, or edema. NEURO: Alert & Oriented x4 to person, place, time, situation. Moves all ext x4 Results - Labs CBC & Chem 7: 08/30/18 08:07 08/30/18 08:07 Labs: Laboratory Results - last 24 hr 08/24/18 08/24/18 08/24/18 17:20 17:20 18:40 WBC 8.3 RBC 3.75 L Hgb 10.6 L Hct 31.9 L MCV 85.1 MCH 28.2 MCHC 33.1 RDW 14.3 Plt Count 675 H D MPV 7.4 Neut % (Auto) 64.9 Lymph % (Auto) 24.5 [place] % (Auto) 8.2 H Eos % (Auto) 2.0 Baso % (Auto) 0.4 Neut # (Auto) 5.4 Lymph # (Auto) 2.0 [place] # (Auto) 0.7 Eos # (Auto) 0.2 Baso # (Auto) 0.0 WBC Differential . Differential Comment Auto diff final Sodium 139 Potassium 3.8 Chloride 105 Carbon Dioxide 25.7 Anion Gap 8 BUN 13 Creatinine 0.83 Estimated GFR 82 L Random Glucose 95 Calcium 9.0 Urine Color Yellow Urine Clarity Hazy H Urine pH 5.0 Ur Specific [place] 1.029 Urine Protein Negative Urine Glucose (UA) Negative Urine Ketones Trace H Urine Occult Blood Negative Urine Nitrate Negative Urine Bilirubin Negative Urine Urobilinogen Less than 2 Ur Leukocyte Esterase Moderate H Urine RBC 2 Urine WBC 18 H Ur Squamous Epith Cells 3 Urine Mucus Few H Micro UA Comment Culture indicated Ur Microscopic Review Not Reportable Urine Culture Comments Culture indicated Assessment and Plan - Assessment (1) Infected wound Code(s): T14.8XXA - Other injury of unspecified body region, initial encounter; L08.9 - Local infection of the skin and subcutaneous tissue, unspecified Status: Acute Plan: This is a 73-year-old male patient with past medical history which includes hyperlipidemia (not on medication), osteoarthritis, diverticulosis, anxiety, osteoporosis and lumbar spinal stenosis/chronic lumbar sacral pain. Patient is S/P L3-L4, L4-5 laminectomy, interbody arthrodesis using PEEK cage and autologous bone graft, L3-L4, L4-5 instrumental fixation using transpedicular screws and rods, L3-L4, L4-5 posterolateral fusion using autologous bone graft and rods. Microsurgical dissection for Lumbar spondylolisthesis on 08/03/18. Per neurosurgery documentation at her initial postop appointment on 08/10/18, she had developed fluid filled blisters on her wound, and drainage which appeared to be an allergic reaction. She was brought back last week (08/17/18) for a wound check, and her wound appeared to be healing better at that time with less drainage. She returned again today for a follow up wound check and she continues to be draining from her wound. Her dressing was saturated. She also appeared to have developed eschar tissue which was not present previously. She is being admitted to start IV antibiotic treatment, she will be undergoing I&D of her wound 08/25/18. We have been consult to assist in medical management of wound infection. Patient denies SOB, chest pain, N/V/D/C, fevers or shills. - Neurosurgery started cefazolin 2 gram Q8H - patient underwent I&D with intraoperative irrigation and wound cultures obtained, wound vac placement 08/25/[address] Alonso - intraoperative wound cultures pending - Wound culture 08/24/18 18:40 Abscess - Back Wound Culture - Preliminary Pseudomonas species will change abx to Cefepime, anticipate DC on PO Levaquin DVT prophylaxis with SCDs - Attending Attestation The exam, history, and the medical decision-making described in the above note were completed with the assistance of the mid-level provider. I reviewed and agree with the findings presented. I attest that I had a [id number] encounter with the patient on the same day, and personally performed and documented my assessment and findings in the medical record. Patient examined. Assessment and plan formulated with Judy Hill PA-C. I agree with the above.
[2018-08-25] MEDS ORDERED: Neostigmine Inj 5 MG/5 ML Syringe IV.PUSH ONE (12:45)
[2018-08-25] MEDS ORDERED: Glycopyrrolate Inj 1 MG/5 ML Syringe IV.PUSH ONE (12:45)
[2018-08-25] MEDS ORDERED: Lidocaine PF 1% Inj 5 ML Syringe OTHER ONE (12:45)
[2018-08-25] MEDS ORDERED: Phenylephrine/NS 1000 MCG/10ML Syringe IV.PUSH ONE (12:45)
[2018-08-25] MEDS ORDERED: Bisacodyl 10 MG Supp RECTAL PRN (13:11)
[2018-08-25] MEDS ORDERED: fentaNYL Citrate Inj 100 MCG/2 ML Ampul ONE (14:06)
[2018-08-25] MEDS ORDERED: *morphine SULFATE 4 MG/ML PERIprocedure ONLY ONE ×2 (14:10→14:23)
[2018-08-25] MEDS ORDERED: *Meperidine Inj 25 MG/ML Vial PERIprocedural Use ONLY ONE (14:23)
--- NOTE | 2018-08-25 14:57 | P.OP ---
Preoperative Diagnosis: Lumbar wound dehiscence Postoperative Diagnosis: Lumbar wound dehiscence Date of procedure: 08/25/18 Procedure: Irrigation and debridement of a lumbar wound with placement of a wound vac Anesthesia: SHAWN Surgeon: Awais Alonso MD Sensor Operator: Addis Pierre Pathology: none sent Operation and Findings: INDICATIONS FOR THE PROCEDURE Ms Montenegro is a 73 year old female who underwent aprior laminectomy and posterolateral fusion using transpedicular screws and rods. She did well postoperatively and lumbar incision was examined in our office and was healing without complications. She was in a facility and despite our specific orders she reports that her dressings were not changed frequently. on her subsequent office visit her wound was much worse, with a dehiscence and a necrotic region over both incisions. . A surgical irrigation and debridement were indicated. The [id number] details of the procedure, indications, alternatives, risks and potential complications were fully discussed with the patient. The patient fully understood. All her questions were answered. No guarantees were given. She voiced requesting the procedure and provided informed consents. DETAILS OF THE PROCEDURE After the induction of general anesthesia, endotracheal intubation was performed. She was positioned prone on a Vitaly table over a Mick frame. All pressure points were carefully padded with eggcrate mattress. The eyes were tapped shut after ointment was applied by the anesthesiologist to prevent corneal abrasion. A Tesfaye hugger was placed over the exposed lower body to maintain control of the core body temperature. The lower lumbar region was prepped and draped in the usual sterile fashion. A skin incision was made excising the necrotic skin tissue with a #10 blade on each wound. the wounds did not appeared to be grossly infected in the midline over the previous scar with a #10 blade. There was no purulent material nor gross sign of infection. Subcutaneous sutures were excised. Cultures were obtained from each wound. Each incision was debrided with a #15 knife. After cultures were obtained. the patient received IV antibiotics and the incision was thoroughly and copiously irrigated with double basic ortho antibiotic solution. The incision was then packed open using a wound vac. At the end of the procedure, the sponge, needle and instrument counts were all correct. The estimated blood loss was less than 50 cc. No intraoperative complications occurred. The patient received prophylactic antibiotics. The patient was then extubated and transferred to the recovery room in stable condition. ESTIMATED BLOOD LOSS: Less than 5 cc. No complications.
[2018-08-25] MEDS ORDERED: ceFAZolin 2 GM Premix Inj 2 GM/50 ML PIGGYBACK IV.SIG SCH ×2 (15:00→18:00)
[2018-08-25] MEDS ORDERED: Senna/Docusate Sodium 8.6/50 MG Tablet PO SCH (21:00)
--- NOTE | 2018-08-26 08:45 | P.DCO ---
- Physical Therapy Order: Improve ambulation - Home Health Nursing Order: Medical education (wound vac dressing changes every 3 days), Signs/ symptoms of disease process, Medication education-adverse effect, Wound care and dressing changes, Nursing assessment with vital signs - Case Management Consult Yes - Certification I have seen patient Yulia Montenegro on 08/26/18. My clinical findings support the need for the requested home health care services because: Limited mobility due to disease progression, Deconditioned with increased weakness, Limited ability to care for self, High risk of falls, Infection with risk of complications I certify that my clinical findings support that this patient is homebound because: Post-op weakness, Unsafe to leave home unassisted
--- NOTE | 2018-08-26 10:11 | P.PNNS ---
Subjective Interval history: Ms. Montenegro underwent irrigation and debridement of a lumbar wound with placement of a wound vac on 08/25/18. Doing ok today had some low back pain this morning. currently eating breakfast. wound cultures 08/24 with pseudomonas. intraop cultures pending. Physical Exam Vital signs: Vital Signs 08/25/18 13:51 08/25/18 14:00 08/25/18 14:15 Temperature 97.8 F Pulse Rate 87 84 77 Respiratory Rate 12 12 10 L Blood Pressure 114/58 L 124/64 123/63 Pulse Oximetry 100 100 100 08/25/18 14:30 08/25/18 14:31 08/25/18 14:42 Temperature Pulse Rate 74 Respiratory Rate 17 15 17 Blood Pressure 113/56 L Pulse Oximetry 100 08/25/18 14:45 08/25/18 15:00 08/25/18 16:00 Temperature 97.7 F 97.3 F L Pulse Rate 76 78 72 Respiratory Rate 18 19 17 Blood Pressure 113/56 L 115/54 L 128/62 Pulse Oximetry 100 100 100 08/25/18 20:00 08/26/18 00:00 08/26/18 04:00 Temperature 97.7 F 98.1 F 98.6 F Pulse Rate 80 79 80 Respiratory Rate 20 20 20 Blood Pressure 121/59 L 117/57 L 140/76 Pulse Oximetry 98 96 99 08/26/18 04:10 Temperature Pulse Rate 69 Respiratory Rate Blood Pressure Pulse Oximetry Intake & Output 08/25/18 08/26/18 08/26/18 18:59 06:59 18:59 Intake Total 830 / 830 1820 / 1820 Output Total 5 / 5 Balance 825 / 825 1820 / 1820 Weight 90.6 kg Intake: IV 100 / 100 1100 / 1100 NS + KCl 20 mEq Inj 1,000 ML @ 1000 / 1000 100 mls/hr IV.CONT .Q10H [facility] Rx #:[id number] Maxipime Inj 1,000 MG In NS Inj 100 / 100 100 / 100 100 ML @ 200 mls/hr IV.SIG Q8H [facility] Rx#:[id number] Oral 30 30 720 / 720 Anesthesia Amount 700 / 700 Output: Estimated Blood Loss 5 / 5 Other: Mode Setting Lower Posterior Back Continuous # Voids 2 4 Date of Last Bowel Movement 08/25/18 # Bowel Movements 1 Assessment and Plan - Plan s/p Irrigation and debridement of a lumbar wound with placement of a wound vac 08/25/18 prelim wound cultures 08/24 with pseudomonas Plan: cont wound vac, continuous at 125 mmHg, dressing changes every 3 days, medicine following, changed abx to cefepime, anticipate dc with po levaquin
[2018-08-26] MEDS: Pantoprazole Inj 40 MG Vial IV.PUSH SCH (10:18)
[2018-08-26] MEDS: Docusate Sodium Liq 100 MG/10 ML UDC PO SCH (10:18)
[2018-08-26] MEDS: Senna/Docusate Sodium 8.6/50 MG Tablet PO SCH ×2 (10:18→20:46)
[2018-08-27] MEDS: Docusate Sodium Liq 100 MG/10 ML UDC PO SCH ×3 (00:37→21:39)
[2018-08-27] MEDS: Senna/Docusate Sodium 8.6/50 MG Tablet PO SCH ×2 (08:17→21:39)
[2018-08-27] MEDS: Pantoprazole Inj 40 MG Vial IV.PUSH SCH (08:17)
--- NOTE | 2018-08-27 09:27 | P.PNNS ---
Subjective Interval history: wound pain better today, vac with good suction. says not ready for discharge today. Physical Exam Vital signs: Vital Signs 08/26/18 12:00 08/26/18 16:00 08/26/18 20:00 Temperature 97.8 F 97.7 F 98.1 F Pulse Rate 80 79 83 Respiratory Rate 23 23 18 Blood Pressure 112/61 166/56 H 134/66 Pulse Oximetry 99 98 97 08/26/18 20:01 08/27/18 00:00 08/27/18 04:00 Temperature 98.8 F 98.2 F Pulse Rate 79 75 73 Respiratory Rate 18 18 Blood Pressure 130/60 157/71 H Pulse Oximetry 96 96 08/27/18 06:45 08/27/18 08:00 Temperature 97.5 F L Pulse Rate 71 89 Respiratory Rate 18 Blood Pressure 139/67 Pulse Oximetry 97 Intake & Output 08/26/18 08/27/18 08/27/18 18:59 06:59 18:59 Intake Total 2160 / 2160 1820 / 1820 Balance 2160 / 2160 1820 / 1820 Weight 90.6 kg Intake: IV 1200 / 1200 1100 / 1100 NS + KCl 20 mEq Inj 1,000 ML @ 1000 / 1000 1000 / 1000 100 mls/hr IV.CONT .Q10H [facility] Rx #:[id number] Maxipime Inj 1,000 MG In NS Inj 200 / 200 100 / 100 100 ML @ 200 mls/hr IV.SIG Q8H [facility] Rx#:[id number] Oral 960 / 960 720 / 720 Other: Mode Setting Lower Posterior Back Continuous Continuous # Voids 4 2 Date of Last Bowel Movement 08/25/18 08/25/18 Narrative: Alert NAD wound with wound vac good seal to suction, Assessment and Plan - Plan s/p Irrigation and debridement of a lumbar wound with placement of a wound vac 08/25/18 wound cultures 08/24 and intraop cultures 08/25 with pseudomonas Plan: cont wound vac, continuous at 125 mmHg, dressing changes every 3 days, medicine following, cont cefepime, anticipate dc with po levaquin, ID consulted for assistance as well cont therapy case mgt consult for SNF placement wound vac form in chart
[2018-08-28] MEDS: Pantoprazole Inj 40 MG Vial IV.PUSH SCH (09:11)
[2018-08-28] MEDS: Docusate Sodium Liq 100 MG/10 ML UDC PO SCH ×2 (09:12→20:53)
[2018-08-28] MEDS: Senna/Docusate Sodium 8.6/50 MG Tablet PO SCH ×2 (09:12→20:58)
--- NOTE | 2018-08-28 10:37 | P.PNNS ---
Subjective Interval history: Without any issues Physical Exam Vital signs: Vital Signs 08/27/18 12:00 08/27/18 16:00 08/27/18 20:00 Temperature 97.8 F 97.7 F 97.8 F Pulse Rate 77 80 79 Respiratory Rate 20 20 18 Blood Pressure 134/59 L 150/67 H 144/76 H Pulse Oximetry 98 98 100 08/28/18 00:00 08/28/18 04:00 08/28/18 08:00 Temperature 97.4 F L 98.3 F 98.6 F Pulse Rate 77 75 80 Respiratory Rate 18 18 20 Blood Pressure 136/74 151/71 H 139/66 Pulse Oximetry 100 99 95 Intake & Output 08/27/18 08/28/18 08/28/18 18:59 06:59 18:59 Intake Total 1680 / 1680 1300 / 1300 100 / 100 Balance 1680 / 1680 1300 / 1300 100 / 100 Weight 90.6 kg Intake: IV 1200 / 1200 1300 / 1300 100 / 100 NS + KCl 20 mEq Inj 1,000 ML @ 1000 / 1000 1000 / 1000 100 mls/hr IV.CONT .Q10H [facility] Rx #:[id number] Maxipime Inj 1,000 MG In NS Inj 100 / 100 200 / 200 100 / 100 100 ML @ 200 mls/hr IV.SIG Q8H [facility] Rx#:[id number] Rocephin Inj 2,000 MG In NS Inj 100 / 100 100 / 100 100 ML @ 200 mls/hr IV.SIG Q12H [facility] Rx#:[id number] Oral 480 / 480 Other: Mode Setting Lower Posterior Back Continuous Continuous Continuous # Voids 4 2 Date of Last Bowel Movement 08/27/18 08/27/18 08/27/18 # Bowel Movements 1 1 Narrative: E4 AOx3 FCx4 full strength wound vac in place with good suction Assessment and Plan - Plan A/P: 73 yo POD 3 wound debridement and placement of wound vac cont wound vac, continuous at 125 mmHg, dressing changes every 3 days, medicine following, cont cefepime, anticipate dc with po levaquin ID consulted for assistance as well cont therapy case mgt consult for SNF placement wound vac form in chart
--- NOTE | 2018-08-28 13:39 | P.CONID ---
History of Present Illness Service: Infectious Disease Consult date: 08/28/18 Requesting Physician: Awais Alonso Reason for Consult: Evaluation and Mment of surgical site wound dehiscence and PSAE infection Primary Care Provider: Bro Rico MD Chief Complaint: lumbar wound drainage History of Present Illness: is a 73 y/o AAF with extensive PMHx most notably recent is S/P L3-L4 , L4-5 laminectomy, interbody arthrodesis using PEEK cage and autologous bone graft, L3-L4, L4-5 instrumental fixation using transpedicular screws and rods, L3-L4, L4-5 posterolateral fusion using autologous bone graft and rods. Microsurgical dissection for Lumbar spondylolisthesis on 08/03/18. Patient reportedly had a postop appointment on 08/10/18, she had developed fluid filled blisters on her wound, and drainage which appeared to be an allergic reaction. She was brought back last week (08/17/18) for a wound check, and her wound appeared to be healing better at that time with less drainage. She returned again today for a follow up wound check and she continues to be draining from her wound. She also appeared to have developed eschar tissue which was not present previously. Patient was taken to OR by for irrigation and washout. Preop open wound and intra op cultures are both positive for Pseudomonas aeruginosa. Urine culture with Proteus but likely contaminant as asymptomatic. Post op patient has a wound vac in place. Patient denies SOB, chest pain, N/V/D/C, fevers or chills. PMHx: Hypertension Fusion of lumbar spine Anxiety Cataracts, bilateral Chronic osteoarthritis Depression Diverticulosis H/O sigmoidoscopy History of hysterectomy Hyperlipidemia Lumbar spinal stenosis Obesity Osteoporosis Post-phlebitic syndrome Right lumbar radiculopathy Thrombocytosis Uterine leiomyoma PSHx: L3-L4, L4-5 laminectomy, interbody arthrodesis using PEEK cage and autologous bone graft, L3-L4, L4-5 instrumental fixation using transpedicular screws and rods, L3-L4, L4-5 posterolateral fusion using autologous bone graft and rods. Microsurgical dissection for Lumbar spondylolisthesis on 08/03/18, with Dr. Alonso. Arthroplasty for hammertoe, back surgery, colonoscopy, hand surgery, hip right hip surgery, hysterectomy, tonsillectomy and adenoidectomy, hip replacement, left knee replacement, tubal ligation Social Hx: Denies EtOH use or tobacco use Recently discharged to jail. Review of Systems All other systems reviewed negative except as stated in HPI [facility] - History History Provided By: Medical Record - Medical History Medical History: Medical History (Last Reviewed 08/30/18 @ 09:14 by Farrukh Hairston) Fusion of lumbar spine Anxiety Cataracts, bilateral Chronic osteoarthritis Depression Diverticulosis H/O sigmoidoscopy History of hysterectomy Hyperlipidemia Lumbar spinal stenosis Obesity Osteoporosis Post-phlebitic syndrome Right lumbar radiculopathy Thrombocytosis Uterine leiomyoma - Surgical History Surgical History: Surgical History (Last Reviewed 08/30/18 @ 09:14 by Farrukh Hairston) H/O colonoscopy H/O hand surgery H/O tubal ligation History of back surgery History of hammertoe correction History of phacoemulsification of cataract of left eye with intraocular lens implantation History of right hip replacement History of tonsillectomy and adenoidectomy History of total left knee replacement - Tobacco History Second Hand Smoke Exposure: No Smoking Status: Never smoker - Alcohol History How Often Do You Have a Drink Containing Alcohol: Never - Substance Use History Substance History: No History of Abuse Medications and Allergies Active Medications: Active Medications Acetaminophen (Tylenol) 650 mg PO Q4H PRN PRN Reason: TEMP > 101.5 Last Admin: 08/28/18 06:07 Dose: 650 mg Acetaminophen (Tylenol Liq) 650 mg NG/OG Q4H PRN PRN Reason: TEMP > 101.5 Acetaminophen (Tylenol Supp) 650 mg RECTAL Q4H PRN PRN Reason: TEMP > 101.5 Hydrocodone Bitart/Acetaminophen ([place] 10/325) 1 tab PO Q4H PRN PRN Reason: PAIN 1-5 Last Admin: 08/26/18 22:05 Dose: 1 tab Hydrocodone Bitart/Acetaminophen ([place] 10/325) 2 tab PO Q4H PRN PRN Reason: PAIN 6-10 Last Admin: 08/27/18 21:39 Dose: 2 tab Al Hydroxide/Mg Hydroxide (Milk Of Magnesia Liq) 30 ml PO Q12H PRN PRN Reason: Mild Constipation Albuterol (Albuterol Neb (Prn)) 2.5 mg NEB Q4HR NEB PRN PRN Reason: FOR WHEEZING Bisacodyl (Dulcolax Supp) 10 mg RECTAL DAILY PRN PRN Reason: SEVERE CONSITIPATION Docusate Sodium (Colace Liq) 100 mg PO BID [facility] Last Admin: 08/28/18 09:12 Dose: Not Given Sodium Chloride (Ns Inj) 500 mls @ 30 mls/hr IV.SIG .Q10H [facility] Last Admin: 08/25/18 19:01 Dose: Not Given Potassium Chloride/Sodium Chloride (Ns + Kcl 20 Meq Inj) 1,000 mls @ 100 mls/ hr IV.CONT .Q10H [facility] Last Admin: 08/28/18 11:13 Dose: 100 mls/hr Cefepime HCl 1,000 mg/ Sodium (Chloride) 100 mls @ 200 mls/hr IV.SIG Q8H [facility] Last Infusion: 08/28/18 10:09 Dose: Infused Ceftriaxone Sodium 2,000 mg/ (Sodium Chloride) 100 mls @ 200 mls/hr IV.SIG Q12H [facility] Last Infusion: 08/28/18 13:25 Dose: Infused Lactulose (Lactulose Liq) 30 ml PO DAILY PRN PRN Reason: SEVERE CONSITIPATION Ondansetron HCl (Zofran Inj) 4 mg IV.PUSH Q8H PRN PRN Reason: NAUSEA OR VOMITING Pantoprazole Sodium (Protonix) 40 mg PO DAILY [facility] Last Admin: 08/28/18 09:12 Dose: 40 mg Pantoprazole Sodium (Protonix Inj) 40 mg IV.PUSH DAILY [facility] Last Admin: 08/28/18 09:11 Dose: 40 mg Senna/Docusate Sodium (Kristy-Colace) 1 tab PO BID [facility] Last Admin: 08/28/18 09:12 Dose: 1 tab Sennosides (Senokot) 17.2 mg PO Q12H PRN PRN Reason: Moderate Constipation Allergies Allergy/AdvReac Type Severity Reaction Status Date / Time No Known Allergies Allergy Verified 08/03/18 07:18 Home Medications Medication Instructions Recorded Confirmed Type alendronate 70 mg PO QWEEK 05/12/18 08/28/18 History aspirin 81 mg PO DAILY 05/12/18 08/28/18 History calcium carbonate-vitamin D3 1 tab PO BID 05/12/18 08/28/18 History [Calcium 600 + D(3)] multivitamin [Daily Multi-Vitamin] 1 tab PO DAILY 05/12/18 08/28/18 History acetaminophen [Acetaminophen Extra 500 mg PO DAILY PRN 05/26/18 08/28/18 History Strength] Exam Vital signs: Vital Signs 08/27/18 16:00 08/27/18 20:00 08/28/18 00:00 Temperature 97.7 F 97.8 F 97.4 F L Pulse Rate 80 79 77 Respiratory Rate 20 18 18 Blood Pressure 150/67 H 144/76 H 136/74 Pulse Oximetry 98 100 100 08/28/18 04:00 08/28/18 08:00 08/28/18 12:00 Temperature 98.3 F 98.6 F 97.7 F Pulse Rate 75 79 78 Respiratory Rate 18 20 20 Blood Pressure 151/71 H 139/66 140/72 Pulse Oximetry 99 95 100 Intake & Output 08/27/18 08/28/18 08/28/18 18:59 06:59 18:59 Intake Total 1680 / 1680 1300 / 1300 1979 / 1979 Balance 1680 / 1680 1300 / 1300 1979 Weight 90.6 kg Intake: IV 1200 / 1200 1300 / 1300 1200 / 1200 NS + KCl 20 mEq Inj 1,000 ML @ 1000 / 1000 1000 / 1000 1000 / 1000 100 mls/hr IV.CONT .Q10H [facility] Rx #:[id number] Maxipime Inj 1,000 MG In NS Inj 100 / 100 200 / 200 100 / 100 100 ML @ 200 mls/hr IV.SIG Q8H [facility] Rx#:[id number] Rocephin Inj 2,000 MG In NS Inj 100 / 100 100 / 100 100 / 100 100 ML @ 200 mls/hr IV.SIG Q12H [facility] Rx#:[id number] Oral 480 / 480 780 / 780 Other: Mode Setting Lower Posterior Back Continuous Continuous Continuous # Voids 4 2 Date of Last Bowel Movement 08/27/18 08/27/18 08/28/18 # Bowel Movements 1 1 Narrative: GENERAL: Well-nourished well-developed, not in acute distress SKIN: Cool and dry, no generalized rash HEAD: Atraumatic. Normocephalic. No temporal or scalp tenderness. EYES: Pupils equal round and reactive. Scleral icterus. No injection or drainage. No petechia ENT: Nothing abnormal detected NECK: Trachea midline. Supple, nontender, no meningeal signs. CARDIOVASCULAR: HS audible. RESPIRATORY: Clear to auscultation bilaterally. GASTROINTESTINAL: Abdomen soft nontender. MUSCULOSKELETAL: Extremities without clubbing, cyanosis. NEUROLOGICAL: Alert oriented 3. Nonfocal. Back with wound vac in place. No induration, tenderness. Dark skinned no erythema appreciated. Psych cooperative IV line sites ok. Results - Labs CBC & Chem 7: 08/30/18 08:07 08/30/18 08:07 Assessment and Plan - Plan Wound dehiscence post op with PSAE infection at site of surgery:Surgical site infection. L3-L4, L4-5 laminectomy, interbody arthrodesis using PEEK cage and autologous bone graft, L3-L4, L4-5 instrumental fixation using transpedicular screws and rods, L3-L4, L4-5 posterolateral fusion using autologous bone graft and rods. Microsurgical dissection for Lumbar spondylolisthesis on 08/03/18, with Dr. Alonso. s/p incision and drainage of abscess. Hardware in place ? infection in presence of hardware Pseudomonas aeruginosa infection. Recs: Dc Ceftriaxone IV Start Cefepime 2 gm IV q8hrs Check LFTs prior to discharge. Check CRP PICC line Cefepime IV for 6 weeks. Needs follow up with Dr.Reba Jones may need repeat imaging to determine infection status at 2 weeks. vannesa Brock who agrees with IV Antibiotics. vannesa Mathis plan of care. Follow labs vannesa Editorial Director Dana: will place infusion orders. office notified. patients daughter notified follow up with needed. Vannesa Mathis follow up with needed. Will sign off please call back if any change in clinical condition or questions.
--- NOTE | 2018-08-28 14:12 | P.DCO ---
Post Hospital Infusion Therapy - Infusion Therapy Location of Infusion Therapy: [facility] Infusion Therapy Order Appointment Date: 08/28/18 - Patient Information Patient Weight: 90.6 kg - Diagnosis (1) Pseudomonas aeruginosa infection Code(s): A49.8 - Other bacterial infections of unspecified site (2) Infected wound Code(s): T14.8XXA - Other injury of unspecified body region, initial encounter; L08.9 - Local infection of the skin and subcutaneous tissue, unspecified (3) Wound infection complicating hardware Code(s): T84.7XXA - Infection and inflammatory reaction due to other internal orthopedic prosthetic devices, implants and grafts, initial encounter - Administer Medication Cefepime Dose: 2 grams IV Directions: q 8 hours Start Treatment: 08/28/18 Stop Treatment: 10/11/18 - Additional Information Venous Access: PICC Line Additional Instructions: [x] Peripheral flush and dressing changes per protocol [x] Implanted port and central fisher trot line: * Implanted port: 10 ml Normal Saline followed by 5 ml Heparin 100 units/ml Heparin flush after each use and monthly to maintain. [] May leave port accessed during therapy. [] May leave peripheral site accessed for duration of therapy. [x] If patient has SOB or respiratory distress, check oxygen saturation. If less than 90% or clinical signs of respiratory distress, administer oxygen at 2 L/min. via nasal cannula and notify physician. [x] Anaphylaxis/Reaction orders: * Stop infusion. * Keep IV line open with saline flush. * Notify physician. * Monitor vital signs every 15 minutes until symptoms resolve. * Check Oxygen saturation; Oxygen at 2 L/min. via nasal cannula if less than 90% or clinical signs of respiratory distress. * Administer diphenhydramine (Benadryl) 25 mg IV STAT, (unless patient has received as pre-med). May repeat once, if necessary. * Solu-Cortef 250 mg IVP over 30-60 seconds, use 100 mg vials for each dissolution. * Epinephrine (1mg/1 ml) 0.3 mg subcutaneously or IVP now with any signs of respiratory distress. * Check with physician for new additional pre-med orders if patient is re- challenged or re-treated. [x] May remove PICC line when treatment complete, after confirming with Physician. [x] If the patient is admitted to the hospital, the ED, or transferred via [facility] , complete transfer form including medication reconciliation order sheet. Weekly Labs: CBC w/diff, Creatinine, CRP, LFTs (Hepatic Function Test) Case Management Consult: Yes Additional Information: Please draw weekly labs, call with abnormal labs or change in clinical condition or questions to Dr.Reba Jones office: Address: [address] [place] [address] - Patient Information Allergies No Known Allergies Allergy (Verified 08/03/18 07:18)
[2018-08-28 16:33] LABS: Albumin 2.8 g/dL (3.4-5.0)
[2018-08-28 16:34] LABS: Total Protein 6.7 g/dL (6.4-8.2)
--- NOTE | 2018-08-28 17:20 | P.PNIM ---
Subjective Interval history: Follow up infected surgical wound Patient concerned and refusing PICC - Patient reports she does not want to return to a, "long-term," patient also concerned with co-pay and cost of facility Physical Exam Vital signs: Vital Signs 08/27/18 20:00 08/28/18 00:00 08/28/18 04:00 Temperature 97.8 F 97.4 F L 98.3 F Pulse Rate 79 77 75 Respiratory Rate 18 18 18 Blood Pressure 144/76 H 136/74 151/71 H Pulse Oximetry 100 100 99 08/28/18 08:00 08/28/18 12:00 08/28/18 16:00 Temperature 98.6 F 97.7 F 97.3 F L Pulse Rate 79 78 81 Respiratory Rate 20 20 20 Blood Pressure 139/66 140/72 145/65 H Pulse Oximetry 95 100 100 Intake & Output 08/27/18 08/28/18 08/28/18 18:59 06:59 18:59 Intake Total 1680 / 1680 1300 / 1300 1979 Balance 1680 / 1680 1300 / 1300 1979 Weight 90.6 kg 90.6 kg Intake: IV 1200 / 1200 1300 / 1300 1200 / 1200 NS + KCl 20 mEq Inj 1,000 ML @ 1000 / 1000 1000 / 1000 1000 / 1000 100 mls/hr IV.CONT .Q10H [facility] Rx #:[id number] Maxipime Inj 1,000 MG In NS Inj 100 / 100 200 / 200 100 / 100 100 ML @ 200 mls/hr IV.SIG Q8H [facility] Rx#:[id number] Rocephin Inj 2,000 MG In NS Inj 100 / 100 100 / 100 100 / 100 100 ML @ 200 mls/hr IV.SIG Q12H [facility] Rx#:[id number] Oral 480 / 480 780 / 780 Other: Mode Setting Lower Posterior Back Continuous Continuous Continuous # Voids 4 2 Date of Last Bowel Movement 08/27/18 08/27/18 08/28/18 # Bowel Movements 1 1 Narrative: GENERAL: This is a well-nourished, well-developed patient drowsy post anesthesia SKIN: post-operative wound vac intact CARDIOVASCULAR: Regular rate and rhythm RESPIRATORY: Clear to auscultation. Breath sounds equal bilaterally. GASTROINTESTINAL: Abdomen soft, non-tender, nondistended. Normal active bowel sounds MUSCULOSKELETAL: Extremities without clubbing, cyanosis, or edema. NEURO: Alert & Oriented x4 to person, place, time, situation. Moves all ext x4 Results - Labs CBC & Chem 7: 08/30/18 08:07 08/30/18 08:07 Laboratory Results - last 24 hr 08/28/18 15:35 Total Bilirubin 0.2 Direct Bilirubin 0.1 Indirect Bilirubin 0.1 AST 10 L ALT 14 Alkaline Phosphatase 113 Total Protein 6.7 Albumin 2.8 L Microbiology 08/25/18 13:22 Wound - Other Gram Stain - Final 08/25/18 13:22 Wound - Other Wound Culture - Final Pseudomonas aeruginosa 08/25/18 13:22 Wound - Other Acid Fast Bacilli Smear - Final No acid fast bacilli seen 08/25/18 13:21 Wound - Other Acid Fast Bacilli Smear - Final No acid fast bacilli seen Assessment and Plan - Assessment (1) Infected wound Code(s): T14.8XXA - Other injury of unspecified body region, initial encounter; L08.9 - Local infection of the skin and subcutaneous tissue, unspecified Status: Acute Plan: This is a 73-year-old male patient with past medical history which includes hyperlipidemia (not on medication), osteoarthritis, diverticulosis, anxiety, osteoporosis and lumbar spinal stenosis/chronic lumbar sacral pain. Patient is S/P L3-L4, L4-5 laminectomy, interbody arthrodesis using PEEK cage and autologous bone graft, L3-L4, L4-5 instrumental fixation using transpedicular screws and rods, L3-L4, L4-5 posterolateral fusion using autologous bone graft and rods. Microsurgical dissection for Lumbar spondylolisthesis on 08/03/18. Per neurosurgery documentation at her initial postop appointment on 08/10/18, she had developed fluid filled blisters on her wound, and drainage which appeared to be an allergic reaction. She was brought back last week (08/17/18) for a wound check, and her wound appeared to be healing better at that time with less drainage. She returned again today for a follow up wound check and she continues to be draining from her wound. Her dressing was saturated. She also appeared to have developed eschar tissue which was not present previously. She is being admitted to start IV antibiotic treatment, she will be undergoing I&D of her wound 08/25/18. We have been consult to assist in medical management of wound infection. Patient denies SOB, chest pain, N/V/D/C, fevers or shills. - Neurosurgery started cefazolin 2 gram Q8H - patient underwent I&D with intraoperative irrigation and wound cultures obtained, wound vac placement 08/25/[address] Alonso - intraoperative wound cultures pending - Wound culture 08/24/18 18:40 Abscess - Back Wound Culture - Preliminary Pseudomonas species - continue Cefepime IV - ID consulted per ID: Wound dehiscence post op with PSAE infection at site of surgery:Surgical site infection. L3-L4, L4-5 laminectomy, interbody arthrodesis using PEEK cage and autologous bone graft, L3-L4, L4-5 instrumental fixation using transpedicular screws and rods, L3-L4, L4-5 posterolateral fusion using autologous bone graft and rods. Microsurgical dissection for Lumbar spondylolisthesis on 08/03/18, with Dr. Alonso. s/p incision and drainage of abscess. Hardware in place ? infection in presence of hardware Pseudomonas aeruginosa infection. Recs: Cefepime 2 gm IV q8hrs Check LFTs prior to discharge. Check CRP PICC line Cefepime IV for 6 weeks. Needs follow up with Dr.Reba Jones may need repeat imaging to determine infection status at 2 weeks. - discussed case with Dr. Heard - Patient refusing PICC line and Patient reports she does not want to return to a, "long-term," patient also concerned with co-pay and cost of facility - Will discuss further with ID tomorrow to determine if there are other options DVT prophylaxis with SCDs - Attending Attestation The exam, history, and the medical decision-making described in the above note were completed with the assistance of the mid-level provider. I reviewed and agree with the findings presented. I attest that I had a [id number]-qarb encounter with the patient on the same day, and personally performed and documented my assessment and findings in the medical record. Patient examined. Assessment and plan formulated with Judy Hill PA-C. I agree with the above.
[2018-08-29] MEDS: Docusate Sodium Liq 100 MG/10 ML UDC PO SCH ×2 (08:16→21:05)
[2018-08-29] MEDS: Senna/Docusate Sodium 8.6/50 MG Tablet PO SCH ×2 (08:16→21:05)
[2018-08-29] MEDS: Pantoprazole Inj 40 MG Vial IV.PUSH SCH (08:17)
--- NOTE | 2018-08-29 08:23 | P.PNNS ---
Subjective Interval history: patient refusing picc line and placement in SNF Physical Exam Vital signs: Vital Signs 08/28/18 12:00 08/28/18 16:00 08/28/18 20:00 Temperature 97.7 F 97.3 F L 98 F Pulse Rate 78 81 80 Respiratory Rate 20 20 20 Blood Pressure 140/72 145/65 H 142/65 H Pulse Oximetry 100 100 99 08/28/18 20:57 08/29/18 00:00 08/29/18 04:00 Temperature 98 F 97.9 F Pulse Rate 76 82 Respiratory Rate 20 16 17 Blood Pressure 139/67 141/68 H Pulse Oximetry 99 98 Intake & Output 08/28/18 08/29/18 08/29/18 18:59 06:59 18:59 Intake Total 3060 / 3060 1321 / 1321 1000 / 1000 Output Total 100 / 100 Balance 3060 / 3060 1221 / 1221 1000 / 1000 Weight 90.6 kg Intake: IV 1300 / 1300 1100 / 1100 1000 / 1000 NS + KCl 20 mEq Inj 1,000 ML @ 1000 / 1000 1000 / 1000 1000 / 1000 100 mls/hr IV.CONT .Q10H [facility] Rx #:[id number] Maxipime Inj 2,000 MG In NS Inj 200 / 200 100 ML @ 200 mls/hr IV.SIG Q8H [facility] Rx#:[id number] Maxipime Inj 2,000 MG In NS Inj 100 / 100 100 ML @ 200 mls/hr IV.SIG Q8H [facility] Rx#:[id number] Rocephin Inj 2,000 MG In NS Inj 100 / 100 100 ML @ 200 mls/hr IV.SIG Q12H [facility] Rx#:[id number] Oral 1760 / 1760 221 / 221 Output: Wound Vac Amount 100 / 100 Lower Posterior Back 100 / 100 Other: Mode Setting Lower Posterior Back Continuous Continuous # Voids 4 2 Date of Last Bowel Movement 08/28/18 08/28/18 # Bowel Movements 1 Narrative: E4 AOx3 FCx4 Julita x4 with symmetric/full strength wound vac in place Assessment and Plan - Plan A/P: 73 yo POD 4 wound debridement and placement of wound vac cont wound vac, continuous at 125 mmHg, dressing changes every 3 days, medicine following, cont cefepime, anticipate dc with po levaquin ID consulted for assistance as well cont therapy pending dispo
--- NOTE | 2018-08-29 15:11 | P.PNIM ---
Subjective Interval history: Follow up infected surgical wound growing Pseudomonas aeruginosa Patient now agreeable to going to SNF for short term after DC then transition to home with [facility] for IV abx and assistance with wound vac Patient offers no new concerns/complaints at this time Physical Exam Vital signs: Vital Signs 08/28/18 16:00 08/28/18 20:00 08/28/18 20:57 Temperature 97.3 F L 98 F Pulse Rate 81 80 Respiratory Rate 20 20 20 Blood Pressure 145/65 H 142/65 H Pulse Oximetry 100 99 08/29/18 00:00 08/29/18 04:00 08/29/18 08:00 Temperature 98 F 97.9 F 97.7 F Pulse Rate 76 82 89 Respiratory Rate 16 17 20 Blood Pressure 139/67 141/68 H 143/66 H Pulse Oximetry 99 98 96 08/29/18 12:00 Temperature 97.5 F L Pulse Rate 88 Respiratory Rate 20 Blood Pressure 147/68 H Pulse Oximetry 99 Intake & Output 08/28/18 08/29/18 08/29/18 18:59 06:59 18:59 Intake Total 3060 / 3060 1321 / 1321 1942 / 1942 Output Total 100 / 100 210 / 210 Balance 3060 / 3060 1221 / 1221 1732 / 1732 Weight 90.6 kg Intake: IV 1300 / 1300 1100 / 1100 1100 / 1100 NS + KCl 20 mEq Inj 1,000 ML @ 1000 / 1000 1000 / 1000 1000 / 1000 100 mls/hr IV.CONT .Q10H KEVIN Rx #:[id number] Maxipime Inj 2,000 MG In NS Inj 200 / 200 100 ML @ 200 mls/hr IV.SIG Q8H KEVIN Rx#:[id number] Maxipime Inj 2,000 MG In NS Inj 100 / 100 100 / 100 100 ML @ 200 mls/hr IV.SIG Q8H KEVIN Rx#:[id number] Rocephin Inj 2,000 MG In NS Inj 100 / 100 100 ML @ 200 mls/hr IV.SIG Q12H KEVIN Rx#:[id number] Oral 1760 / 1760 221 / 221 442 / 442 Anesthesia Amount 400 / 400 Output: Estimated Blood Loss Wound Vac Amount 100 / 100 200 / 200 Lower Posterior Back 100 / 100 200 / 200 Other: Mode Setting Lower Posterior Back Continuous Continuous Continuous # Voids 4 2 2 Date of Last Bowel Movement 08/28/18 08/28/18 08/28/18 # Bowel Movements 1 1 Narrative: GENERAL: This is a well-nourished, well-developed patient drowsy post anesthesia SKIN: post-operative wound vac intact CARDIOVASCULAR: Regular rate and rhythm RESPIRATORY: Clear to auscultation. Breath sounds equal bilaterally. GASTROINTESTINAL: Abdomen soft, non-tender, nondistended. Normal active bowel sounds MUSCULOSKELETAL: Extremities without clubbing, cyanosis, or edema. NEURO: Alert & Oriented x4 to person, place, time, situation. Moves all ext x4 Results - Labs CBC & Chem 7: 08/30/18 08:07 08/30/18 08:07 Laboratory Results - last 24 hr 08/28/18 15:35 Total Bilirubin 0.2 Direct Bilirubin 0.1 Indirect Bilirubin 0.1 AST 10 L ALT 14 Alkaline Phosphatase 113 Total Protein 6.7 Albumin 2.8 L Assessment and Plan - Assessment (1) Infected wound Code(s): T14.8XXA - Other injury of unspecified body region, initial encounter; L08.9 - Local infection of the skin and subcutaneous tissue, unspecified Status: Acute Plan: This is a 73-year-old male patient with past medical history which includes hyperlipidemia (not on medication), osteoarthritis, diverticulosis, anxiety, osteoporosis and lumbar spinal stenosis/chronic lumbar sacral pain. Patient is S/P L3-L4, L4-5 laminectomy, interbody arthrodesis using PEEK cage and autologous bone graft, L3-L4, L4-5 instrumental fixation using transpedicular screws and rods, L3-L4, L4-5 posterolateral fusion using autologous bone graft and rods. Microsurgical dissection for Lumbar spondylolisthesis on 08/03/18. Per neurosurgery documentation at her initial postop appointment on 08/10/18, she had developed fluid filled blisters on her wound, and drainage which appeared to be an allergic reaction. She was brought back last week (08/17/18) for a wound check, and her wound appeared to be healing better at that time with less drainage. She returned again today for a follow up wound check and she continues to be draining from her wound. Her dressing was saturated. She also appeared to have developed eschar tissue which was not present previously. She is being admitted to start IV antibiotic treatment, she will be undergoing I&D of her wound 08/25/18. We have been consult to assist in medical management of wound infection. Patient denies SOB, chest pain, N/V/D/C, fevers or shills. - Neurosurgery started cefazolin 2 gram Q8H - patient underwent I&D with intraoperative irrigation and wound cultures obtained, wound vac placement 08/25/[address] Alonso - intraoperative wound cultures pending - Wound culture 08/24/18 18:40 Abscess - Back Wound Culture - Preliminary Pseudomonas species - continue Cefepime IV - ID consulted per ID: Wound dehiscence post op with PSAE infection at site of surgery:Surgical site infection. L3-L4, L4-5 laminectomy, interbody arthrodesis using PEEK cage and autologous bone graft, L3-L4, L4-5 instrumental fixation using transpedicular screws and rods, L3-L4, L4-5 posterolateral fusion using autologous bone graft and rods. Microsurgical dissection for Lumbar spondylolisthesis on 08/03/18, with Dr. Alonso. s/p incision and drainage of abscess. Hardware in place ? infection in presence of hardware Pseudomonas aeruginosa infection. Recs: Cefepime 2 gm IV q8hrs Check LFTs prior to discharge. PICC line Cefepime IV for 6 weeks. Needs follow up with Dr.Reba Jones may need repeat imaging to determine infection status at 2 weeks. - discussed case with Dr. Heard (08/29) Due to Pseudomonas aeruginosa infection and hardware in place continues to recommend Cefepime. It is possible to use continuous pump at home if patient has a family member or support person who is willing to learn and will fill the pump once a day at home. - discussed this option with patient. Patient now agreeable to going to SNF for short term after DC then transition to home with [facility] for IV abx and assistance with wound vac. Patient also now agreeable to PICC line placement - awaiting PICC line placement DVT prophylaxis with SCDs - Attending Attestation Patient examined. Assessment and plan formulated with Judy CARL I agree with the above. Patient examined. Assessment and plan formulated with Judy CARL I agree with the above.
[2018-08-30 08:33] LABS: Baso % (Auto) 0.5 % (0.0-2.0); Eos # (Auto) 0.2 th/mm3 (0.0-0.4); Eos % (Auto) 4.3 % (0.0-4.0); Hemoglobin 10.6 gm/dL (11.6-15.3); Lymph % (Auto) 35.8 % (9.0-44.0); Mean Corpuscular HGB Conc 32.2 % (32.0-36.0); Mean Corpuscular Hemoglobin 27.7 pg (27.0-34.0); Mean Platelet Volume 7.2 fL (7.0-11.0); Mono # (Auto) 0.4 th/mm3 (0.0-0.9); Mono % (Auto) 7.6 % (0.0-8.0); Neut # (Auto) 2.9 th/mm3 (1.8-7.7); Neut % (Auto) 51.8 % (16.0-70.0); Platelet Count 371 th/mm3 (150-450); Red Blood Count 3.84 mil/mm3 (4.00-5.30); Red Cell Distribution Width 14.5 % (11.6-17.2); White Blood Count 5.6 th/mm3 (4.0-11.0)
[2018-08-30 09:01] LABS: Calcium 8.8 mg/dL (8.5-10.1); Carbon Dioxide 23.8 meq/L (21.0-32.0); Potassium 3.4 meq/L (3.5-5.1)
--- NOTE | 2018-08-30 09:27 | P.PNIM ---
Subjective Interval history: Patient reports anxiety regrading PICC placement offers no other concerns/complaints Physical Exam Vital signs: Vital Signs 08/29/18 12:00 08/29/18 16:00 08/29/18 20:00 Temperature 97.5 F L 98.2 F 97.9 F Pulse Rate 88 86 88 Respiratory Rate 20 18 18 Blood Pressure 147/68 H 141/65 H 143/66 H Pulse Oximetry 99 100 100 08/29/18 21:06 08/30/18 00:00 08/30/18 02:13 Temperature 98 F Pulse Rate 84 Respiratory Rate 18 17 17 Blood Pressure 146/64 H Pulse Oximetry 100 08/30/18 04:00 Temperature 98 F Pulse Rate 86 Respiratory Rate 17 Blood Pressure 144/64 H Pulse Oximetry 99 Intake & Output 08/29/18 08/30/18 08/30/18 18:59 06:59 18:59 Intake Total 3463 / 3463 321 / 321 Output Total 315 / 315 Balance 3148 / 3148 321 / 321 Weight 90.7 kg Intake: IV 2200 / 2200 100 / 100 NS + KCl 20 mEq Inj 1,000 ML @ 2000 / 2000 100 mls/hr IV.CONT .Q10H KEVIN Rx #:[id number] Maxipime Inj 2,000 MG In NS Inj 200 / 200 100 / 100 100 ML @ 200 mls/hr IV.SIG Q8H KEVIN Rx#:[id number] Oral 663 / 663 221 / 221 Anesthesia Amount 600 / 600 Output: Estimated Blood Loss Wound Vac Amount 300 / 300 Lower Posterior Back 300 / 300 Other: Mode Setting Lower Posterior Back Continuous Continuous # Voids 2 2 Date of Last Bowel Movement 08/29/18 08/29/18 # Bowel Movements 1 Narrative: GENERAL: This is a well-nourished, well-developed patient SKIN: post-operative wound vac intact CARDIOVASCULAR: Regular rate and rhythm RESPIRATORY: Clear to auscultation. Breath sounds equal bilaterally. GASTROINTESTINAL: Abdomen soft, non-tender, nondistended. Normal active bowel sounds MUSCULOSKELETAL: Extremities without clubbing, cyanosis, or edema. NEURO: Alert & Oriented x4 to person, place, time, situation. Moves all ext x4 Results - Labs CBC & Chem 7: 08/30/18 08:07 08/30/18 08:07 Laboratory Results - last 24 hr 08/30/18 08/30/18 08:07 08:07 WBC 5.6 RBC 3.84 L Hgb 10.6 L Hct 33.0 L MCV 86.0 MCH 27.7 MCHC 32.2 RDW 14.5 Plt Count 371 D MPV 7.2 Neut % (Auto) 51.8 Lymph % (Auto) 35.8 [place] % (Auto) 7.6 Eos % (Auto) 4.3 H Baso % (Auto) 0.5 Neut # (Auto) 2.9 Lymph # (Auto) 2.0 [place] # (Auto) 0.4 Eos # (Auto) 0.2 Baso # (Auto) 0.0 WBC Differential . Differential Comment Auto diff final Sodium 140 Potassium 3.4 L Chloride 107 Carbon Dioxide 23.8 Anion Gap 9 BUN 7 Creatinine 0.82 Estimated GFR 83 L Random Glucose 101 Calcium 8.8 Assessment and Plan - Assessment (1) Infected wound Code(s): T14.8XXA - Other injury of unspecified body region, initial encounter; L08.9 - Local infection of the skin and subcutaneous tissue, unspecified Status: Acute Plan: This is a 73-year-old male patient with past medical history which includes hyperlipidemia (not on medication), osteoarthritis, diverticulosis, anxiety, osteoporosis and lumbar spinal stenosis/chronic lumbar sacral pain. Patient is S/P L3-L4, L4-5 laminectomy, interbody arthrodesis using PEEK cage and autologous bone graft, L3-L4, L4-5 instrumental fixation using transpedicular screws and rods, L3-L4, L4-5 posterolateral fusion using autologous bone graft and rods. Microsurgical dissection for Lumbar spondylolisthesis on 08/03/18. Per neurosurgery documentation at her initial postop appointment on 08/10/18, she had developed fluid filled blisters on her wound, and drainage which appeared to be an allergic reaction. She was brought back last week (08/17/18) for a wound check, and her wound appeared to be healing better at that time with less drainage. She returned again today for a follow up wound check and she continues to be draining from her wound. Her dressing was saturated. She also appeared to have developed eschar tissue which was not present previously. She is being admitted to start IV antibiotic treatment, she will be undergoing I&D of her wound 08/25/18. We have been consult to assist in medical management of wound infection. Patient denies SOB, chest pain, N/V/D/C, fevers or shills. - Neurosurgery started cefazolin 2 gram Q8H - patient underwent I&D with intraoperative irrigation and wound cultures obtained, wound vac placement 08/25/[address] Alonso - intraoperative wound cultures pending - Wound culture 08/24/18 18:40 Abscess - Back Wound Culture - Preliminary Pseudomonas species - continue Cefepime IV - ID consulted per ID: Wound dehiscence post op with PSAE infection at site of surgery:Surgical site infection. L3-L4, L4-5 laminectomy, interbody arthrodesis using PEEK cage and autologous bone graft, L3-L4, L4-5 instrumental fixation using transpedicular screws and rods, L3-L4, L4-5 posterolateral fusion using autologous bone graft and rods. Microsurgical dissection for Lumbar spondylolisthesis on 08/03/18, with Dr. Alonso. s/p incision and drainage of abscess. Hardware in place ? infection in presence of hardware Pseudomonas aeruginosa infection. Recs: Cefepime 2 gm IV q8hrs Check LFTs prior to discharge. PICC line Cefepime IV for 6 weeks. Needs follow up with Dr.Reba Jones may need repeat imaging to determine infection status at 2 weeks. - discussed case with Dr. Heard (08/29) Due to Pseudomonas aeruginosa infection and hardware in place continues to recommend Cefepime. It is possible to use continuous pump at home if patient has a family member or support person who is willing to learn and will fill the pump once a day at home. - discussed this option with patient. Patient now agreeable to going to SNF for short term after DC then transition to home with [facility] for IV abx and assistance with wound vac. Patient also now agreeable to PICC line placement - awaiting PICC line placement DVT prophylaxis with SCDs Wound like to DC to SNF today with PICC and IV abx - discussed with case management - Attending Attestation The exam, history, and the medical decision-making described in the above note were completed with the assistance of the mid-level provider. I reviewed and agree with the findings presented. I attest that I had a [id number] encounter with the patient on the same day, and personally performed and documented my assessment and findings in the medical record. Patient examined. Assessment and plan formulated with Judy Hill PA-C. I agree with the above.
[2018-08-30] MEDS: Senna/Docusate Sodium 8.6/50 MG Tablet PO SCH ×2 (09:57→21:08)
[2018-08-30] MEDS: Docusate Sodium Liq 100 MG/10 ML UDC PO SCH ×2 (09:57→21:07)
[2018-08-30] MEDS: Pantoprazole Inj 40 MG Vial IV.PUSH SCH (09:58)
--- NOTE | 2018-08-30 13:05 | P.DS ---
Addendum entered and electronically signed by SERGEY Bernardo 10:58: Patient not DC'd 08/30 case management working on placement for DC. Plan to DC today. Original Note: <Judy Hill - Last Filed: 08/30/18 13:01> Date of admission: 08/24/18 14:38 Primary care physician: Bro Rico MD Attending physician on discharge: Matias Barahona Anticipated date of discharge: 08/30/18 Brief History from admission: Ms. Montenegro is a 73 year old female who underwent L3-L4, L4-5 laminectomy, interbody arthrodhesis using PEEK cage and autologous bone graft, L3-L4, L4-5 instrumental fixation using transpedicular screws and rods, L3-L4, L4-5 posterolateral fusion using autologous bone graft and rods. Microsurgical dissection for Lumbar spondylolisthesis on 08/03/18. At her initial postop appointment on 08/10/18, she had developed fluid filled blisters on her wound, and drainage which appeared to be an allergic reaction. She was brought back last week (08/17/18) for a wound check, and her wound appeared to be healing better at that time with less drainage. She returned again today for a follow up wound check and she continues to be draining from her wound. Her dressing was saturated. She also appeared to have developed eschar tissue which was not present previously. She is being admitted to start IV antibiotic treatment, she will be undergoing I&D of her wound tomorrow. DS: Diagnosis - Discharge Diagnosis (1) Infected wound Status: Acute DS: Summary Hospital Course: This is a 73-year-old male patient with past medical history which includes hyperlipidemia (not on medication), osteoarthritis, diverticulosis, anxiety, osteoporosis and lumbar spinal stenosis/chronic lumbar sacral pain. Patient is S/P L3-L4, L4-5 laminectomy, interbody arthrodesis using PEEK cage and autologous bone graft, L3-L4, L4-5 instrumental fixation using transpedicular screws and rods, L3-L4, L4-5 posterolateral fusion using autologous bone graft and rods. Microsurgical dissection for Lumbar spondylolisthesis on 08/03/18. Per neurosurgery documentation at her initial postop appointment on 08/10/18, she had developed fluid filled blisters on her wound, and drainage which appeared to be an allergic reaction. She was brought back last week (08/17/18) for a wound check, and her wound appeared to be healing better at that time with less drainage. She returned again today for a follow up wound check and she continues to be draining from her wound. Her dressing was saturated. She also appeared to have developed eschar tissue which was not present previously. She is being admitted to start IV antibiotic treatment, she will be undergoing I&D of her wound 08/25/18. We have been consult to assist in medical management of wound infection. Patient denies SOB, chest pain, N/V/D/C, fevers or shills. - Neurosurgery started cefazolin 2 gram Q8H - patient underwent I&D with intraoperative irrigation and wound cultures obtained, wound vac placement 08/25/[address] Alonso - intraoperative wound cultures pending - Microbiology 08/25/18 13:22 Wound - Other Gram Stain - Final 08/25/18 13:22 Wound - Other Wound Culture - Final Pseudomonas aeruginosa 08/25/18 13:22 Wound - Other Acid Fast Bacilli Smear - Final No acid fast bacilli seen 08/25/18 13:21 Wound - Other Acid Fast Bacilli Smear - Final No acid fast bacilli seen 08/25/18 13:22 Wound - Other Fungal Smear - Final No fungal elements seen 08/25/18 13:21 Wound - Other Fungal Smear - Final No fungal elements seen 08/25/18 13:21 Wound - Other Gram Stain - Final 08/25/18 13:21 Wound - Other Wound Culture - Final Pseudomonas aeruginosa 08/24/18 18:40 Abscess - Back Gram Stain - Final 08/24/18 18:40 Abscess - Back Wound Culture - Final Pseudomonas aeruginosa 08/24/18 18:40 Clean Catch Urine Urine Culture - Final Proteus mirabilis - continue Cefepime IV - ID consulted per ID: Wound dehiscence post op with PSAE infection at site of surgery:Surgical site infection. L3-L4, L4-5 laminectomy, interbody arthrodesis using PEEK cage and autologous bone graft, L3-L4, L4-5 instrumental fixation using transpedicular screws and rods, L3-L4, L4-5 posterolateral fusion using autologous bone graft and rods. Microsurgical dissection for Lumbar spondylolisthesis on 08/03/18, with Dr. Alonso. s/p incision and drainage of abscess. Hardware in place ? infection in presence of hardware Pseudomonas aeruginosa infection. Recs: Cefepime 2 gm IV q8hrs Check LFTs prior to discharge. PICC line Cefepime IV for 6 weeks. Needs follow up with Dr.Reba Jones may need repeat imaging to determine infection status at 2 weeks. - discussed case with Dr. Heard (08/29) Due to Pseudomonas aeruginosa infection and hardware in place continues to recommend Cefepime. It is possible to use continuous pump at home if patient has a family member or support person who is willing to learn and will fill the pump once a day at home. - discussed this option with patient. Patient now agreeable to going to SNF for short term after DC then transition to home with [facility] for IV abx and assistance with wound vac. Patient also now agreeable to PICC line placement - awaiting PICC line placement DVT prophylaxis with SCDs Wound like to DC to SNF today with PICC and IV abx - discussed with case management - Time Spent with Patient Total time spent providing and/or coordinating discharge services: Greater than 30 minutes Exam Vital signs: Vital Signs 08/29/18 16:00 08/29/18 20:00 08/29/18 21:06 Temperature 98.2 F 97.9 F Pulse Rate 86 88 Respiratory Rate 18 18 18 Blood Pressure 141/65 H 143/66 H Pulse Oximetry 100 100 08/30/18 00:00 08/30/18 02:13 08/30/18 04:00 Temperature 98 F 98 F Pulse Rate 84 86 Respiratory Rate 17 17 17 Blood Pressure 146/64 H 144/64 H Pulse Oximetry 100 99 Intake & Output 08/29/18 08/30/18 08/30/18 18:59 06:59 18:59 Intake Total 3463 / 3463 321 / 321 Output Total 315 / 315 Balance 3148 / 3148 321 / 321 Weight 90.7 kg Intake: IV 2200 / 2200 100 / 100 NS + KCl 20 mEq Inj 1,000 ML @ 2000 / 2000 100 mls/hr IV.CONT .Q10H KEVIN Rx #:[id number] Maxipime Inj 2,000 MG In NS Inj 200 / 200 100 / 100 100 ML @ 200 mls/hr IV.SIG Q8H KEVIN Rx#:[id number] Oral 663 / 663 221 / 221 Anesthesia Amount 600 / 600 Output: Estimated Blood Loss Wound Vac Amount 300 / 300 Lower Posterior Back 300 / 300 Other: Mode Setting Lower Posterior Back Continuous Continuous # Voids 2 2 Date of Last Bowel Movement 08/29/18 08/29/18 # Bowel Movements 1 Narrative: GENERAL: This is a well-nourished, well-developed patient SKIN: post-operative wound vac intact CARDIOVASCULAR: Regular rate and rhythm RESPIRATORY: Clear to auscultation. Breath sounds equal bilaterally. GASTROINTESTINAL: Abdomen soft, non-tender, nondistended. Normal active bowel sounds MUSCULOSKELETAL: Extremities without clubbing, cyanosis, or edema. NEURO: Alert & Oriented x4 to person, place, time, situation. Moves all ext x4 Results Procedures completed during hospitalization: I&D with intraoperative irrigation and wound cultures obtained, wound vac placement 08/25/[address] Alonso Labs on day of discharge: Labs from last 24 hours 08/30/18 08/30/18 08:07 08:07 WBC 5.6 RBC 3.84 L Hgb 10.6 L Hct 33.0 L MCV 86.0 MCH 27.7 MCHC 32.2 RDW 14.5 Plt Count 371 D MPV 7.2 Neut % (Auto) 51.8 Lymph % (Auto) 35.8 [place] % (Auto) 7.6 Eos % (Auto) 4.3 H Baso % (Auto) 0.5 Neut # (Auto) 2.9 Lymph # (Auto) 2.0 [place] # (Auto) 0.4 Eos # (Auto) 0.2 Baso # (Auto) 0.0 WBC Differential . Differential Comment Auto diff final Sodium 140 Potassium 3.4 L Chloride 107 Carbon Dioxide 23.8 Anion Gap 9 BUN 7 Creatinine 0.82 Estimated GFR 83 L Random Glucose 101 Calcium 8.8 <Juan C Ballesteros B - Last Filed: 09/03/18 09:23> Date of admission: 08/24/18 14:38 Primary care physician: Bro Rico MD DS: Diagnosis - Discharge Diagnosis (1) Infected wound Status: Acute DS: Summary Hospital Course: The exam, history, and the medical decision-making described in the above note were completed with the assistance of the mid-level provider. I reviewed and agree with the findings presented. I attest that I had a [id number] encounter with the patient on the same day, and personally performed and documented my assessment and findings in the medical record. Patient examined. Assessment and plan formulated with Judy Hill PA-C. I agree with the above. - Time Spent with Patient Total time spent providing and/or coordinating discharge services: Greater than 30 minutes Results Labs on day of discharge: Preliminary micro results at discharge 08/25/18 13:22 Fungal Culture - Preliminary Wound - Other No growth in 1 week 08/25/18 13:22 Mycobacterial Culture - Preliminary Wound - Other No growth in 1 week 08/25/18 13:21 Fungal Culture - Preliminary Wound - Other No growth in 1 week 08/25/18 13:21 Mycobacterial Culture - Preliminary Wound - Other No growth in 1 week Discharge Plan - Discharge Order Discharge Orders: Discharge Order (Routine); Ordered 08/30/18 Ordered By: Judy Hill - Discharge Details Anticipated Discharge Date: 08/30/18 - Physicians Team Primary Care Provider: Bro Rico Attending Provider: Awais Alonso Other Providers: Juan C Ballesteros DO ; Ayesha Heard MD ; [facility] ; [facility] - Rxs /Orders / Referrals /Forms Prescriptions: New albuterol sulfate 2.5 mg /3 mL (0.083 %) Solution For Nebulization 2.5 mg NEB Q4HR NEB PRN (Reason: FOR WHEEZING) RF: 0 cefepime 1 gram Recon Soln 2,000 mg IV Q8H RF: 0 magnesium hydroxide [Milk of Magnesia] 400 mg/5 mL Suspension 30 ml PO Q12H PRN (Reason: Mild Constipation) RF: 0 sennosides-docusate sodium [Senna Plus] 8.6-50 mg Tablet 1 tab PO BID RF: 0 Continue acetaminophen [Acetaminophen Extra Strength] 500 mg Tablet 500 mg PO DAILY PRN (Reason: Pain) alendronate 70 mg Tablet 70 mg PO QWEEK aspirin 81 mg Tablet,Chewable 81 mg PO DAILY calcium carbonate-vitamin D3 [Calcium 600 + D(3)] 600 mg calcium- 200 unit Capsule 1 tab PO BID multivitamin [Daily Multi-Vitamin] Tablet 1 tab PO DAILY Referrals: Bro Rico MD [Primary Care Provider] - See Instructions (follow up in 1 week) Awais Alonso MD [NEUROSURGERY] - See Instructions (Follow up in 1-2 weeks) Lashay Jones MD [Physician] - See Instructions (Dr.Reba Jones office: Address: [address] [place] [address] ) - Discharge Instructions Patient Printed Instructions: Hydrocodone/Acetaminophen (By mouth), Albuterol ( By breathing), Magnesium Hydroxide (By mouth), Cefepime (By injection), Incision and Drainage (DC) Additional Instructions: Wound vac per Dr. Alonso. keep wound on vac continuous to suction at 125 mmHg. Change vac dressing every 3 days.
[2018-08-31] MEDS: Pantoprazole Inj 40 MG Vial IV.PUSH SCH (08:02)
[2018-08-31] MEDS: Docusate Sodium Liq 100 MG/10 ML UDC PO SCH ×2 (08:02→20:37)
[2018-08-31] MEDS: Senna/Docusate Sodium 8.6/50 MG Tablet PO SCH ×2 (08:03→20:36)
--- NOTE | 2018-08-31 10:04 | P.PNNS ---
Subjective Interval history: This note is for 08/30/18 when patient was seen and examined 08/30: pt awaiting PICC placement this morning, she is agreeable to SNF. ID recs dc with IV abx. Physical Exam Vital signs: Vital Signs 08/30/18 20:00 08/31/18 00:00 08/31/18 04:00 Temperature 98.2 F 98.5 F 99.0 F Pulse Rate 90 91 H 79 Respiratory Rate 20 20 20 Blood Pressure 124/69 126/59 L 145/67 H Pulse Oximetry 96 93 L 96 08/31/18 08:00 Temperature 97.7 F Pulse Rate 97 H Respiratory Rate 20 Blood Pressure 134/68 Pulse Oximetry 93 L Intake & Output 08/30/18 08/31/18 08/31/18 18:59 06:59 18:59 Intake Total 1100 / 1100 3500 / 3500 Output Total 150 / 150 Balance 1100 / 1100 3350 / 3350 Weight 86.7 kg Intake: IV 1100 / 1100 1200 / 1200 NS + KCl 20 mEq Inj 1,000 ML @ 1000 / 1000 1000 / 1000 100 mls/hr IV.CONT .Q10H KEVIN Rx #:[id number] Maxipime Inj 2,000 MG In NS Inj 100 / 100 200 / 200 100 ML @ 200 mls/hr IV.SIG Q8H KEVIN Rx#:[id number] Oral 1100 / 1100 Other 1200 / 1200 Output: Wound Vac Amount 150 / 150 Lower Posterior Back 150 / 150 Other: Mode Setting Lower Posterior Back Continuous Continuous Other Intake Source Saline Solution # Voids 3 Date of Last Bowel Movement 08/29/18 08/30/18 # Bowel Movements 1 Narrative: This note is for 08/30/18 when patient was seen and examined ambulated from her bed to bathroom wound vac in place with good seal, clean, dry and intact 5/5 strength in LE's Assessment and Plan - Plan This note is for 08/30/18 when patient was seen and examined A/P: 73 yo POD 5 wound debridement and placement of wound vac cont wound vac, continuous at 125 mmHg, dressing changes every 3 days, ID recs dc on IV cefepime, PICC placed. f/u with Dr. Lashay Jones outpatient awaiting PICC placement cont therapy pending dispo
--- NOTE | 2018-08-31 16:25 | P.PNNS ---
Subjective Interval history: picc line placed yesterday, slight incisional pain when she moves otherwise doing well. awaiting snf placement Physical Exam Vital signs: Vital Signs 08/30/18 20:00 08/31/18 00:00 08/31/18 04:00 Temperature 98.2 F 98.5 F 99.0 F Pulse Rate 90 91 H 79 Respiratory Rate 20 20 20 Blood Pressure 124/69 126/59 L 145/67 H Pulse Oximetry 96 93 L 96 08/31/18 08:00 08/31/18 12:00 Temperature 97.7 F 98.5 F Pulse Rate 97 H 87 Respiratory Rate 20 20 Blood Pressure 134/68 142/67 H Pulse Oximetry 93 L 99 Intake & Output 08/30/18 08/31/18 08/31/18 18:59 06:59 18:59 Intake Total 1100 / 1100 3500 / 3500 1100 / 1100 Output Total 150 / 150 Balance 1100 / 1100 3350 / 3350 1100 / 1100 Weight 86.7 kg Intake: IV 1100 / 1100 1200 / 1200 1100 / 1100 NS + KCl 20 mEq Inj 1,000 ML @ 1000 / 1000 1000 / 1000 1000 / 1000 100 mls/hr IV.CONT .Q10H KEVIN Rx #:[id number] Maxipime Inj 2,000 MG In NS Inj 100 / 100 200 / 200 100 / 100 100 ML @ 200 mls/hr IV.SIG Q8H KEVIN Rx#:[id number] Oral 1100 / 1100 Other 1200 / 1200 Output: Wound Vac Amount 150 / 150 Lower Posterior Back 150 / 150 Other: Mode Setting Lower Posterior Back Continuous Continuous Continuous Other Intake Source Saline Solution # Voids 3 Date of Last Bowel Movement 08/29/18 08/30/18 08/31/18 # Bowel Movements 1 Assessment and Plan - Plan A/P: 73 yo POD 6 wound debridement and placement of wound vac cont wound vac, continuous at 125 mmHg, dressing changes every 3 days, ID recs dc on IV cefepime, PICC placed. f/u with Dr. Lashay Jones outpatient cont therapy pending dispo to SNF
--- NOTE | 2018-08-31 19:48 | P.PNIM ---
Subjective Interval history: Patient seen earlier today around 1000 patient offered no concerns/complaints awaiting CM to arrange DC -DC orders place 08/30/18 Physical Exam Vital signs: Vital Signs 08/30/18 20:00 08/31/18 00:00 08/31/18 04:00 Temperature 98.2 F 98.5 F 99.0 F Pulse Rate 90 91 H 79 Respiratory Rate 20 20 20 Blood Pressure 124/69 126/59 L 145/67 H Pulse Oximetry 96 93 L 96 08/31/18 08:00 08/31/18 12:00 08/31/18 16:00 Temperature 97.7 F 98.5 F 97.8 F Pulse Rate 97 H 87 88 Respiratory Rate 20 20 20 Blood Pressure 134/68 142/67 H 137/68 Pulse Oximetry 93 L 99 99 Intake & Output 08/31/18 08/31/18 09/01/18 06:59 18:59 06:59 Intake Total 3500 / 3500 1100 / 1100 2200 / 2200 Output Total 150 / 150 180 / 180 Balance 3350 / 3350 1100 / 1100 2019 Weight 86.7 kg Intake: IV 1200 / 1200 1100 / 1100 NS + KCl 20 mEq Inj 1,000 ML @ 1000 / 1000 1000 / 1000 100 mls/hr IV.CONT .Q10H KEVIN Rx #:[id number] Maxipime Inj 2,000 MG In NS Inj 200 / 200 100 / 100 100 ML @ 200 mls/hr IV.SIG Q8H KEVIN Rx#:[id number] Oral 1100 / 1100 1000 / 1000 Other 1200 / 1200 1200 / 1200 Output: Wound Vac Amount 150 / 150 180 / 180 Lower Posterior Back 150 / 150 180 / 180 Other: Mode Setting Lower Posterior Back Continuous Continuous Continuous Other Intake Source Saline Solution Saline Solution # Voids 3 3 Date of Last Bowel Movement 08/30/18 08/31/18 08/31/18 # Bowel Movements 1 1 Narrative: GENERAL: This is a well-nourished, well-developed patient SKIN: post-operative wound vac intact CARDIOVASCULAR: Regular rate and rhythm RESPIRATORY: Clear to auscultation. Breath sounds equal bilaterally. GASTROINTESTINAL: Abdomen soft, non-tender, nondistended. Normal active bowel sounds MUSCULOSKELETAL: Extremities without clubbing, cyanosis, or edema. NEURO: Alert & Oriented x4 to person, place, time, situation. Moves all ext x4 Results - Labs CBC & Chem 7: 08/30/18 08:07 08/30/18 08:07 - Procedures I&D with intraoperative irrigation and wound cultures obtained, wound vac placement 08/25/[address] Alonso Assessment and Plan - Assessment (1) Infected wound Code(s): T14.8XXA - Other injury of unspecified body region, initial encounter; L08.9 - Local infection of the skin and subcutaneous tissue, unspecified Status: Acute Plan: This is a 73-year-old male patient with past medical history which includes hyperlipidemia (not on medication), osteoarthritis, diverticulosis, anxiety, osteoporosis and lumbar spinal stenosis/chronic lumbar sacral pain. Patient is S/P L3-L4, L4-5 laminectomy, interbody arthrodesis using PEEK cage and autologous bone graft, L3-L4, L4-5 instrumental fixation using transpedicular screws and rods, L3-L4, L4-5 posterolateral fusion using autologous bone graft and rods. Microsurgical dissection for Lumbar spondylolisthesis on 08/03/18. Per neurosurgery documentation at her initial postop appointment on 08/10/18, she had developed fluid filled blisters on her wound, and drainage which appeared to be an allergic reaction. She was brought back last week (08/17/18) for a wound check, and her wound appeared to be healing better at that time with less drainage. She returned again today for a follow up wound check and she continues to be draining from her wound. Her dressing was saturated. She also appeared to have developed eschar tissue which was not present previously. She is being admitted to start IV antibiotic treatment, she will be undergoing I&D of her wound 08/25/18. We have been consult to assist in medical management of wound infection. Patient denies SOB, chest pain, N/V/D/C, fevers or shills. - Neurosurgery started cefazolin 2 gram Q8H - patient underwent I&D with intraoperative irrigation and wound cultures obtained, wound vac placement 08/25/[address] Alonso - intraoperative wound cultures pending - Wound culture 08/24/18 18:40 Abscess - Back Wound Culture - Preliminary Pseudomonas species - continue Cefepime IV - ID consulted per ID: Wound dehiscence post op with PSAE infection at site of surgery:Surgical site infection. L3-L4, L4-5 laminectomy, interbody arthrodesis using PEEK cage and autologous bone graft, L3-L4, L4-5 instrumental fixation using transpedicular screws and rods, L3-L4, L4-5 posterolateral fusion using autologous bone graft and rods. Microsurgical dissection for Lumbar spondylolisthesis on 08/03/18, with Dr. Alonso. s/p incision and drainage of abscess. Hardware in place ? infection in presence of hardware Pseudomonas aeruginosa infection. Recs: Cefepime 2 gm IV q8hrs Check LFTs prior to discharge. PICC line Cefepime IV for 6 weeks. Needs follow up with Dr.Reba Jones may need repeat imaging to determine infection status at 2 weeks. - discussed case with Dr. Heard (08/29) Due to Pseudomonas aeruginosa infection and hardware in place continues to recommend Cefepime. It is possible to use continuous pump at home if patient has a family member or support person who is willing to learn and will fill the pump once a day at home. - discussed this option with patient. Patient now agreeable to going to SNF for short term after DC then transition to home with [facility] for IV abx and assistance with wound vac. Patient also now agreeable to PICC line placement - awaiting PICC line placement DVT prophylaxis with SCDs DC orders written 08/30/18 - discussed with case management patient accepted at [facility] awaiting wound vac
[2018-09-01] MEDS: Senna/Docusate Sodium 8.6/50 MG Tablet PO SCH (09:01)
[2018-09-01] MEDS: Docusate Sodium Liq 100 MG/10 ML UDC PO SCH (09:01)
[2018-09-01] MEDS: Pantoprazole Inj 40 MG Vial IV.PUSH SCH (09:01)
--- NOTE | 2018-09-01 11:31 | P.PNIM ---
Subjective Interval history: pt dc held until wound vac supplies delivered. they were last night. Physical Exam Vital signs: Vital Signs 08/31/18 12:00 08/31/18 16:00 08/31/18 19:57 Temperature 98.5 F 97.8 F 98.1 F Pulse Rate 87 88 85 Respiratory Rate 20 20 20 Blood Pressure 142/67 H 137/68 144/79 H Pulse Oximetry 99 99 100 09/01/18 00:00 09/01/18 04:00 09/01/18 08:00 Temperature 98.5 F 97.7 F 97.5 F L Pulse Rate 80 80 80 Respiratory Rate 20 20 16 Blood Pressure 119/62 132/65 146/69 H Pulse Oximetry 96 95 99 Intake & Output 08/31/18 09/01/18 09/01/18 18:59 06:59 18:59 Intake Total 1100 / 1100 3344 / 3344 100 / 100 Output Total 180 / 180 Balance 1100 / 1100 3164 / 3164 100 / 100 Weight 87.7 kg Intake: IV 1100 / 1100 944 / 944 100 / 100 NS + KCl 20 mEq Inj 1,000 ML @ 1000 / 1000 844 / 844 100 mls/hr IV.CONT .Q10H KEVIN Rx #:[id number] Maxipime Inj 2,000 MG In NS Inj 100 / 100 100 / 100 100 / 100 100 ML @ 200 mls/hr IV.SIG Q8H KEVIN Rx#:[id number] Oral 1200 / 1200 Other 1200 / 1200 Output: Wound Vac Amount 180 / 180 Lower Posterior Back 180 / 180 Other: Mode Setting Lower Posterior Back Continuous Continuous Other Intake Source Saline Solution # Voids 1 Date of Last Bowel Movement 08/31/18 08/31/18 08/31/18 # Bowel Movements 1 no distress Results - Labs CBC & Chem 7: 08/30/18 08:07 08/30/18 08:07 - Procedures I&D with intraoperative irrigation and wound cultures obtained, wound vac placement 08/25/[address] Alonso Assessment and Plan - Assessment (1) Infected wound Code(s): T14.8XXA - Other injury of unspecified body region, initial encounter; L08.9 - Local infection of the skin and subcutaneous tissue, unspecified Status: Acute Plan: This is a 73-year-old male patient with past medical history which includes hyperlipidemia (not on medication), osteoarthritis, diverticulosis, anxiety, osteoporosis and lumbar spinal stenosis/chronic lumbar sacral pain. Patient is S/P L3-L4, L4-5 laminectomy, interbody arthrodesis using PEEK cage and autologous bone graft, L3-L4, L4-5 instrumental fixation using transpedicular screws and rods, L3-L4, L4-5 posterolateral fusion using autologous bone graft and rods. Microsurgical dissection for Lumbar spondylolisthesis on 08/03/18. Per neurosurgery documentation at her initial postop appointment on 08/10/18, she had developed fluid filled blisters on her wound, and drainage which appeared to be an allergic reaction. She was brought back last week (08/17/18) for a wound check, and her wound appeared to be healing better at that time with less drainage. She returned again today for a follow up wound check and she continues to be draining from her wound. Her dressing was saturated. She also appeared to have developed eschar tissue which was not present previously. She is being admitted to start IV antibiotic treatment, she will be undergoing I&D of her wound 08/25/18. We have been consult to assist in medical management of wound infection. Patient denies SOB, chest pain, N/V/D/C, fevers or shills. - Neurosurgery started cefazolin 2 gram Q8H - patient underwent I&D with intraoperative irrigation and wound cultures obtained, wound vac placement 08/25/[address] Alonso - intraoperative wound cultures pending - Wound culture 08/24/18 18:40 Abscess - Back Wound Culture - Preliminary Pseudomonas species - continue Cefepime IV - ID consulted per ID: Wound dehiscence post op with PSAE infection at site of surgery:Surgical site infection. L3-L4, L4-5 laminectomy, interbody arthrodesis using PEEK cage and autologous bone graft, L3-L4, L4-5 instrumental fixation using transpedicular screws and rods, L3-L4, L4-5 posterolateral fusion using autologous bone graft and rods. Microsurgical dissection for Lumbar spondylolisthesis on 08/03/18, with Dr. Alonso. s/p incision and drainage of abscess. Hardware in place ? infection in presence of hardware Pseudomonas aeruginosa infection. Recs: Cefepime 2 gm IV q8hrs Check LFTs prior to discharge. PICC line Cefepime IV for 6 weeks. Needs follow up with Dr.Reba Jones may need repeat imaging to determine infection status at 2 weeks. - discussed case with Dr. Heard (08/29) Due to Pseudomonas aeruginosa infection and hardware in place continues to recommend Cefepime. It is possible to use continuous pump at home if patient has a family member or support person who is willing to learn and will fill the pump once a day at home. - discussed this option with patient. Patient now agreeable to going to SNF for short term after DC then transition to home with [facility] for IV abx and assistance with wound vac. Patient also now agreeable to PICC line placement - awaiting PICC line placement DVT prophylaxis with SCDs DC orders written 08/30/18 - discussed with case management patient accepted at [facility] Pt was awaiting wound vac supplies which arrived last night. discussed with CM...dc today.
== END 2018-09-01 13:14 ==
LOC: N05 14:38
PROVIDERS: ADMIT Neurological Surgery; ATTEND Neurological Surgery

== ENCOUNTER 2018-10-20 09:54 | Observation (INO) ==
[2018-10-20] MEDS ORDERED: Metoprolol Tartrate 25 MG Tablet PO ONE (10:15)
[2018-10-20] MEDS ORDERED: Sodium Chlor 0.9% Inj 500 ML IV.CONT ONE (10:15)
[2018-10-20] MEDS ORDERED: Chlorhexidine Gluconate 2% 1 Pack (2 Cloths) TOPICAL ONE (10:15)
[2018-10-20] MEDS ORDERED: Thrombin Topical Soln 5,000 UNIT Vial TOPICAL ONE (13:26)
[2018-10-20] MEDS ORDERED: Gelatin Size 100 Topical Foam ONE (13:26)
[2018-10-20] MEDS ORDERED: Bupivacaine/Epinephrine PF Inj 0.5% 30 ML Vial ONE (13:26)
[2018-10-20] MEDS ORDERED: methylPREDNISolone acetate 40 MG/ML VIAL ONE (13:26)
[2018-10-20] MEDS ORDERED: Heparin Central Flush 100 UNIT/ML 5 ML Vial IV.FLUSH PRN (14:00)
[2018-10-20] MEDS ORDERED: ceFAZolin 2 GM Premix Inj 2 GM/50 ML PIGGYBACK IV.SIG ONE (16:18)
[2018-10-20] MEDS ORDERED: Sugammadex Inj 200 MG/2 ML Vial IV.PUSH ONE (16:37)
[2018-10-20] MEDS ORDERED: fentaNYL Citrate Inj 100 MCG/2 ML Ampul ONE (16:38)
--- NOTE | 2018-10-20 17:19 | P.OP ---
Preoperative Diagnosis: lumbar wound dehiscence Postoperative Diagnosis: lumbar wound dehiscence Date of procedure: 11/09/18 Procedure: Irrigation and debridement of lumbar wound Anesthesia: SHAWN Surgeon: Awais Alonso MD Examiner Of Currency: Addis Pierre Pathology: none sent Operation and Findings: INDICATIONS FOR THE PROCEDURE Ms Montenegro is a 73 year old female who underwent an L4 to L5 laminectomy and posterolateral fusion using transpedicular screws and rods. She did well postoperatively and lumbar incision was examined and healing without complications. The patient reports that over time she deveoped an infection and was debrided with placement of a wound vac. She had some necrotic tissue. A surgical irrigation and debridement were indicated. The [id number] details of the procedure, indications, alternatives, risks and potential complications were fully discussed with the patient. The patient fully understood. All her questions were answered. No guarantees were given. She voiced requesting the procedure and provided informed consents. The patient was offered the alternative of delaying the procedure and continuing with nonsurgical management. DETAILS OF THE PROCEDURE After the induction of general anesthesia, endotracheal intubation was performed. A Roblero catheter, bilateral MICHELLE hose and sequential compression devices were placed and kept throughout the procedure. The patient was positioned prone on a Vitaly table over a Mick frame. All pressure points were carefully padded with eggcrate mattress. The eyes were tapped shut after ointment was applied by the anesthesiologist to prevent corneal abrasion. A Tesfaye hugger was placed over the exposed lower body to maintain control of the core body temperature. The lower lumbar region was prepped and draped in the usual sterile fashion. Her wound was open. Cultures were sent. The incision borders were sharply debrided with a currete and tissue cultures were sent. No purulent material was seen After cultures were obtained. the patient received IV antibiotics and the incision was thoroughly and copiously irrigated with double basic ortho antibiotic solution. At the end of the procedure, the sponge, needle and instrument counts were all correct. The estimated blood loss was less than 5 cc. No intraoperative complications occurred. The patient received prophylactic antibiotics. The patient was then extubated and transferred to the recovery room in stable condition. ESTIMATED BLOOD LOSS: Less than 5 cc. No complications
[2018-10-20] MEDS ORDERED: Morphine Sulfate Inj 2 MG/ML Vial IV.PUSH PRN (19:41)
[2018-10-20] MEDS ORDERED: Bisacodyl 10 MG Supp RECTAL PRN (19:41)
[2018-10-20] MEDS ORDERED: CALCIUM PHOSPHATE VITAMIN D3 PO SCH (19:45)
[2018-10-20] MEDS ORDERED: Sodium Chloride 0.9% 2 ML Flush PRN IV.FLUSH (20:51)
[2018-10-20] MEDS ORDERED: CALCIUM CITRATE 600 MG PO SCH (21:00)
[2018-10-20] MEDS ORDERED: CEFEPIME 2 GM IV.SIG SCH (22:00)
[2018-10-21] MEDS: ceFAZolin 1 GM Premix Inj 1 GM/50 ML PIGGYBACK IV.SIG SCH ×3 (00:09→15:16)
[2018-10-21] MEDS: Sodium Chloride 0.9% 2 ML Flush BID IV.FLUSH SCH ×3 (00:09→20:54)
[2018-10-21] MEDS: Calcium/Vitamin D 250/125 MG Tablet PO SCH ×3 (00:10→20:52)
[2018-10-21] MEDS: Acetaminophen 500 MG Tablet PO PRN ×2 (00:10→05:18)
[2018-10-21] MEDS: Senna/Docusate Sodium 8.6/50 MG Tablet PO SCH ×3 (03:55→20:54)
[2018-10-21] MEDS: Heparin Central Flush 100 UNIT/ML 5 ML Vial IV.FLUSH SCH (09:17)
[2018-10-22] MEDS: Heparin Central Flush 100 UNIT/ML 5 ML Vial IV.FLUSH SCH (09:00)
[2018-10-22] MEDS: Sodium Chloride 0.9% 2 ML Flush BID IV.FLUSH SCH (09:00)
[2018-10-22] MEDS: Senna/Docusate Sodium 8.6/50 MG Tablet PO SCH (09:00)
[2018-10-22] MEDS: Calcium/Vitamin D 250/125 MG Tablet PO SCH (09:00)
--- NOTE | 2018-10-22 10:58 | P.DCO ---
- Home Health Nursing Order: Signs/symptoms of disease process, Medication education-adverse effect, Wound care and dressing changes, Nursing assessment with vital signs, IV medication administration - Case Management Consult Case Management Consult-Home Health: Yes - Certification I have seen patient Yulia Montenegro on 10/22/18. My clinical findings support the need for the requested home health care services because: Deconditioned with increased weakness, Infection with risk of complications I certify that my clinical findings support that this patient is homebound because: Post-op weakness
[2018-10-22] MEDS: Acetaminophen 500 MG Tablet PO PRN (14:41)
--- NOTE | 2018-10-22 15:24 | P.PNNS ---
Subjective Interval history: her cefepime was discontinued as she was developing a reaction and was started on Azactam per Dr. Jones. Physical Exam Vital signs: Vital Signs 10/21/18 16:15 10/21/18 20:00 10/22/18 00:00 Temperature 98.4 F 97.8 F 97.7 F Pulse Rate 85 90 83 Respiratory Rate 20 20 20 Blood Pressure 117/57 L 108/63 116/56 L Pulse Oximetry 99 96 98 10/22/18 04:00 10/22/18 07:45 10/22/18 12:00 Temperature 98.9 F 98.2 F 97.6 F Pulse Rate 90 93 H 81 Respiratory Rate 20 20 18 Blood Pressure 116/70 116/66 144/62 H Pulse Oximetry 100 98 93 L Intake & Output 10/21/18 10/22/18 10/22/18 18:59 06:59 18:59 Intake Total 500 / 500 680 / 680 Output Total 3 / 3 Balance 500 / 500 677 / 677 Weight 92.4 kg Intake: IV 500 / 500 200 / 200 LR 1000 mL Inj 1,000 ML @ 30 300 / 300 mls/hr IV.CONT .Q24H ONE Rx#: [id number] Azactam Inj 1,000 MG In NS Inj 100 / 100 200 / 200 100 ML @ 200 mls/hr IV.SIG Q8H KEVIN Rx#:[id number] Ancef 1 GM Premix Inj 1 gm In 100 / 100 50 ml @ 100 mls/hr IV.SIG Q8H KEVIN Rx#:[id number] Oral 480 / 480 Output: Urine 3 / 3 Other: # Voids 1 3 Assessment and Plan - Plan 73 y/o female with redo I&D of lumbar wound continue wound vac therapy cont IV abx, per Dr. Jones dc home
== END 2018-10-22 18:34 | disposition home health service (06) ==
LOC: HSDC 09:54 → HSDI 09:54 → N05 20:43
PROVIDERS: ADMIT Neurological Surgery; ATTEND Neurological Surgery